=== PATIENT | female | born 1950 | race Caucasian/White ===

== ENCOUNTER → 2016-08-25 | Outpatient (CLI) | payer OTHER ==
[~2016-08-25] MED LIST: ACET-24 PO; ACT/45 PO; ACT15 PO; AMOX500C3 PO; ASPEC81 PO; ASPI81TA28 PO; ATOR-24 PO; CLB200 PO; DICL-201 PO; DOCU100C PO; FERR1TAB13 PO; FLUT0.15 NAE; FURO-85 PO; GLC500 PO; GLCSC500400 PO; LEVO100T48 PO; LEVO100T7 PO; LISI10TA PO; LPR25 PO; LSX20 PO; MAGN400T6 PO; METF-384 PO; MULT-506 PO; ONDA8TAB6 PO; PRLSR20 PO; RXC5 PO; SERT-234 PO; SITA100T3 PO; SULF800T23 PO
--- NOTE | 2016-08-25 15:21 | MAMMOGRAPHY REPORT ---
BILATERAL DIGITAL SCREENING MAMMOGRAM WITH CAD: 08/25/2016 TECHNIQUE: Current study was also evaluated with a Computer Aided Detection (CAD) system. Bilatera l CC and MLO views were obtained. COMPARISON: Comparison is made to exams dated: 07/20/2015 mammogram, 01/15/2014 mammogram - [facility], 06/15/2009 mammogram, 07/29/2015 mammogram - [facility], and 1 08/30/2009 mammogram. BREAST COMPOSITION: There are scattered areas of fibroglandular density in both breasts. FINDINGS: No suspicious masses, calcifications, or areas of architectural distortion are noted in e ither breast. Post surgical changes are noted in the right central/6:00 breast from prior benign ex cisional biopsy. IMPRESSION: ACR BI-RADS CATEGORY 2: BENIGN There is no mammographic evidence of malignancy. A 1 year screening mammogram is recommended. The p atient will receive written notification of the results. Approximately 10% of breast cancers are not detected with mammography. A negative mammographic repor t should not delay biopsy if a clinically suggestive mass is present. Lucy Ferrera M.D. ah/:08/25/2016 13:27:00 Head Of History: Hien GUDINO)(Batsheva), [facility] letter sent: Normal 1/2 BI-RADS Code: ACR BI-RADS Category 2: Benign
== END | disposition home or self-care (01) ==
LOC: C.MAMM 10:38
PROVIDERS: ATTEND Internal Medicine
DX: Z12.31 Encounter for screening mammogram for malignant neoplasm of breast (principal)

== ENCOUNTER → 2016-12-14 | Outpatient (CLI) | payer OTHER ==
[~2016-12-14] MED LIST changes: +VANC1INJ94 IV
[2016-12-14 10:28] LABS: BASO % 0.5 %; BASO ABS # 0.04 K/uL (0-0.2); COMPLETE YES; EOS % 3.3 %; HEMATOCRIT 37.6 % (37-47); IG% 0.2 %; LYMPH % 17.9 %; LYMPH ABS # 1.51 K/uL (1.2-3.4); MEAN CELL VOLUME 88.9 fL (80-100); MEAN CORPUSCULAR HEMOGLOBIN 28.1 pg (25-34); MEAN CORPUSCULAR HGB CONC 31.6 g/dl (32-36); MONO % 6.4 %; NEUT % 71.7 %; PLATELET COUNT 302 K/uL (130-400); RED BLOOD COUNT 4.23 M/uL (4.2-5.4); WHITE BLOOD COUNT 8.45 K/uL (4.8-10.8)
[2016-12-14 11:01] LABS: ESTIMATED AVERAGE GLUCOSE 128 mg/dl; HA1C FLAG Normal (Normal)
[2016-12-14 11:15] LABS: RATIO 10.3 mcg/mg (0-30.0)
[2016-12-14 11:17] LABS: ALT/SGPT 33 U/L (12-78); AST/SGOT 16 U/L (15-37); BLOOD UREA NITROGEN 24 mg/dl (7-18); BUN/CREATININE RATIO 18.2 (10-20); CALCIUM 8.9 mg/dl (8.5-10.1); CARBON DIOXIDE 27 mmol/L (21-32); CHLORIDE 105 mmol/L (98-107); CHOLESTEROL 143 mg/dl (0-200); GLUCOSE 103 mg/dl (70-99); MAGNESIUM 1.5 mg/dl (1.8-2.4); POTASSIUM 4.3 mmol/L (3.5-5.1); SODIUM 141 mmol/L (136-145); TRIGLYCERIDES 159 mg/dl (0-150); VERY LOW DENSITY LIPOPROT CALC 32 mg/dl
[2016-12-14 11:27] LABS: ALB/GLOB RATIO 0.9 (0.9-2); ALKALINE PHOSPHATASE 109 U/L (45-117); CHOLESTEROL/HDL RATIO 3.9; HDL CHOLESTEROL 37 mg/dl; LDL CHOLESTEROL CALCULATED 74 mg/dl; THYROID STIMULATING HORMONE 0.569 uIu/ml (0.300-4.500)
== END | disposition home or self-care (01) ==
LOC: C.LAB1850 09:06
PROVIDERS: ATTEND Internal Medicine
DX: E11.9 Type 2 diabetes mellitus without complications (principal); E03.9 Hypothyroidism, unspecified; E83.42 Hypomagnesemia; Z86.2 Personal history of diseases of the blood and blood-forming organs and certain disorders involving the immune mechanism

== ENCOUNTER 2017-03-02 06:06 | Inpatient (IN) | payer OTHER ==
[2017-02-05 11:22] VITALS: BMI 41.0
--- NOTE | 2017-02-05 11:57 | PAT Medication Instructions ---
Service Date Feb 05, 2017. Current Home Medication List Amoxicillin (Amoxil), 2,000 MG PO UD PRN for N Aspirin (Aspirin Ec), 81 MG PO QAM Atorvastatin (Lipitor), 40 MG PO HS Diclofenac (Voltaren), 75 MG PO BID Fluticasone Propionate (Nasal) (Flonase Allergy Relief), 2 SPRAYS DMITRIY PRN Furosemide (Lasix *), 20 MG PO DAILY PRN Levothyroxine (Levoxyl), 0.1 MG PO QAM Lisinopril (Prinivil), 10 MG PO QAM Magnesium Oxide (Mag-Ox), 400 MG PO BID Metformin HCL (Glucophage *), 1,000 MG PO BID Metoprolol Tartrate (Lopressor), 0.5 TAB PO BID Omeprazole (Prilosec), 20 MG PO HS Pioglitazone (Actos *), 45 MG PO QAM Sertraline (Zoloft), 100 MG PO QAM Sitagliptin Phosphate (Januvia), 100 MG PO QPM Medication Instructions For Your Scheduled Surgery - Hold the following medications 48 hours prior to surgery: Metformin HCL (Glucophage *), 1,000 MG PO BID - Hold the following medications the morning of surgery: Furosemide (Lasix *), 20 MG PO DAILY PRN Pioglitazone (Actos *), 45 MG PO QAM Lisinopril (Prinivil), 10 MG PO QAM Magnesium Oxide (Mag-Ox), 400 MG PO BID Diclofenac (Voltaren), 75 MG PO BID (otherwise okay to continue per surgeon) - Take the following medications the morning of surgery with a sip of water OTHERWISE NOTHING TO EAT OR DRINK AFTER MIDNIGHT : Aspirin (Aspirin Ec), 81 MG PO QAM Levothyroxine (Levoxyl), 0.1 MG PO QAM Sertraline (Zoloft), 100 MG PO QAM Metoprolol Tartrate (Lopressor), 0.5 TAB PO BID Fluticasone Propionate (Nasal) (Flonase Allergy Relief), 2 SPRAYS DMITRIY PRN - Take the following medications as scheduled the night before surgery: Omeprazole (Prilosec), 20 MG PO HS Atorvastatin (Lipitor), 40 MG PO HS Sitagliptin Phosphate (Januvia), 100 MG PO QPM Metoprolol Tartrate (Lopressor), 0.5 TAB PO BID Magnesium Oxide (Mag-Ox), 400 MG PO BID Fluticasone Propionate (Nasal) (Flonase Allergy Relief), 2 SPRAYS DMITRIY PRN If you have any questions please call us at [phone] or [phone] or [phone]
[2017-02-05 12:21] LABS: BASO % 0.2 %; BASO ABS # 0.02 K/uL (0-0.2); COMPLETE YES; EOS % 2.1 %; HEMATOCRIT 37.7 % (37-47); IG% 0.4 %; LYMPH % 19.9 %; LYMPH ABS # 1.96 K/uL (1.2-3.4); MEAN CELL VOLUME 87.1 fL (80-100); MEAN CORPUSCULAR HEMOGLOBIN 27.7 pg (25-34); MEAN CORPUSCULAR HGB CONC 31.8 g/dl (32-36); MEAN PLATELET VOLUME 9.4 fL (7.4-10.4); MONO % 5.3 %; NEUT % 72.1 %; PLATELET COUNT 318 K/uL (130-400); RED BLOOD COUNT 4.33 M/uL (4.2-5.4); WHITE BLOOD COUNT 9.83 K/uL (4.8-10.8)
[2017-02-05 12:26] LABS: ESTIMATED AVERAGE GLUCOSE 131 mg/dl; HA1C FLAG Normal (Normal)
[2017-02-05 12:31] LABS: PROTHROMBIN TIME (PATIENT) 11.2 SECONDS (9.0-12.0)
[2017-02-05 12:34] LABS: URINE APPEARANCE CLEAR (CLEAR); URINE BILIRUBIN NEG (NEG); URINE COLOR YELLOW; URINE NITRITE NEG (NEG); URINE SPECIFIC GRAVITY 1.017 (1.000-1.030); UROBILINOGEN NEG (NEG)
[2017-02-05 12:35] LABS: MANUAL MICROSCOPIC REQUIRED? NO; REVIEW REQ? NO
[2017-02-05 13:36] LABS: BUN/CREATININE RATIO 23.1 (10-20); CALCIUM 9.2 mg/dl (8.5-10.1); CREATININE 1.2 mg/dl (0.60-1.20); POTASSIUM 4.6 mmol/L (3.5-5.1)
--- NOTE | 2017-02-21 14:01 | HISTORY & PHYSICAL EXAMINATION ---
DATE OF ADMISSION: 03/02/2017 SUBJECTIVE CHIEF COMPLAINT: Right knee pain. HISTORY OF PRESENT ILLNESS: The patient is a 67-year-old female who complains of right knee pain. She states that the symptoms have been chronic and nontraumatic in nature. She states that the symptoms occur constantly and are described as aching, sharp and throbbing. She has failed conservative therapies including nonsteroidal anti-inflammatories, cortisone injections, and physical therapy. This affects her activities of daily living. She would like to proceed with a right total knee arthroplasty. PAST MEDICAL HISTORY: Significant for hypertension, hypercholesterolemia, anxiety, shortness of breath while walking up hills, kzt-[id number]-[id number] diabetes, osteoarthritis, hypothyroidism and GERD. PAST SURGICAL HISTORY: Partial thyroidectomy, carpal tunnel of the right hand, carpal tunnel of the left hand, total hysterectomy, left TKA, lumpectomy of the left breast, lumpectomy of the right breast, lower lumbar fusion and nerve decompression, multilevel lumbar fusion. SOCIAL HISTORY: She denies alcohol use. She denies smoking or tobacco use. She denies IV or illegal drug use. She lives in a 1-story house and she is currently retired. FAMILY HISTORY: Mom and dad have a history of heart disease and heart attack. ALLERGIES: EFFEXOR, MYRBETRIQ. MEDICATIONS: Aspirin 81 mg once daily, atorvastatin 40 mg once daily, diclofenac 75 mg 1 tablet twice a day, fluticasone 50 mcg 2 sprays each nostril for congestion, furosemide 20 mg 1 tablet as needed for fluid, Januvia 100 mg 1 tablet daily, lisinopril 10 mg 1 tablet daily, Mag-Ox 400 mg 1 tablet twice a day, metoprolol 25 mg 1/2 tablet twice a day, metformin 1000 mg 1 tablet twice a day, omeprazole 20 mg 1 capsule at bedtime, pioglitazone 45 mg 1 tablet daily, sertraline 100 mg 1 tablet daily, Synthroid 100 mcg 1 tablet daily. REVIEW OF SYSTEMS: She denies headaches, fevers, chills, double vision, blurry vision, sore throat, cough, chest pain, nausea, vomiting, diarrhea, constipation, numbness, tingling, tired, urinary difficulties, thoughts to harm herself or harm others or depression. She is positive for joint pain, joint stiffness of her right knee. OBJECTIVE: GENERAL APPEARANCE: The patient is a 67-year-old female who is sitting in no acute distress. She is well dressed, well nourished. She is awake, alert and oriented x3. VITAL SIGNS: She is 5 foot 3 inches tall, 230 pounds, blood pressure is 122/70. HEAD, EYES, EARS, NOSE, AND THROAT: Normocephalic, atraumatic. Extraocular movements are intact. PERRLA. Mucosa was moist. No septal deviation. NECK: Supple with no lymphadenopathy, no JVD, no thyromegaly. HEART: Regular rate and rhythm. No murmurs or gallops. LUNGS: Clear to auscultation. No wheezing or rhonchi. ABDOMEN: Soft, nontender, nondistended. Normal bowel sounds, no hepatosplenomegaly. EXTREMITIES: Paying particular attention to the right lower extremity, she is able to extend her knee to 0 degrees and flex her knee to 90 degrees. She has medial joint line tenderness. Ligaments are intact. NEUROLOGIC EXAMINATION: Cranial nerves II-XII are intact. Pulses were compared bilaterally and were equal. IMAGING: X-rays of the right knee demonstrate bone on bone medial joint line narrowing, osteophyte formation and subchondral sclerosis. IMPRESSION: Primary osteoarthritis of the right knee. PLAN: The patient is scheduled for a right total knee arthroplasty. She has failed conservative therapies including cortisone injections, nonsteroidal anti-inflammatories and physical therapy with no relief. This affects her activities of daily living. She would like to proceed with a right total knee arthroplasty. Risks and benefits to surgery were discussed that included but not limited to infection, DVT, pain, failure to relieve all symptoms, blood vessel damage, nerve damage, need for revision surgeries, PE, and anesthesia risks were all discussed with the patient and she wishes to proceed. All questions were answered to her satisfaction. DVT prophylaxis will be aspirin 81 mg twice a day. On discharge she would like to go home with home health. MARCELA
[2017-03-02] VITALS (11 sets, daily range): BP systolic 106–137; BP diastolic 60–88; PULSE 60–79; TEMP 36.7–37.6; O2SAT 94–98; Ht 160 cm; Wt 105.2 kg
[~2017-03-02] VITALS: Ht 160 cm; Wt 105.2 kg
[~2017-03-02 06:06] MED LIST changes: -ACET-24 PO; +ACETAMINOPHEN 500 MG TAB PO SCH; -ACT/45 PO; -ASPEC81 PO; +CEFAZOLIN 2000 MG/60 ML D5W 60 ML IV SCH; -CLB200 PO; +CeleBREX 200 MG CAP PO SCH; +DEXAMETHASONE 4 MG TAB PO SCH; -DOCU100C PO; +FAMOTIDINE 20 MG TAB PO SCH; -FERR1TAB13 PO; -FURO-85 PO; +GABAPENTIN 300 MG CAP PO SCH; -GLCSC500400 PO; +LACTATED RINGER'S 1000ML 1,000 ML IV SCH; +LACTATED RINGER'S 1000ML 500 ML IV ONE; +LACTATED RINGER'S 1000ML IV SCH; -LEVO100T7 PO; -METF-384 PO; +METOCLOPRAMIDE HCL 10 MG TAB PO SCH; -MULT-506 PO; -ONDA8TAB6 PO; +ROPIVACAINE 5MG/ML 30 ML 150 MG, BUPIVACAINE/EPINEPHR 0.5% MPF 30 ML, KETOROLAC TROMETH... INFIL SCH; -RXC5 PO; -SULF800T23 PO; -VANC1INJ94 IV
[2017-03-02] MEDS ORDERED: BUPIVACAINE 0.5 % 5 MG/1 ML PF 10ML VIAL ONE (06:28)
[2017-03-02] MEDS ORDERED: BUPIVACAINE 0.25% 30 ML VIAL ONE (06:28)
[2017-03-02] MEDS: TRANEXAMIC ACID INJ 1,000 MG in SODIUM CHLORIDE 0.9% 100ML 100 ML IV SCH ×2 (06:30→07:30)
[2017-03-02] MEDS ORDERED: ATROPINE SULFATE 0.1 MG/ML 5ML SYR IV PRN (06:45)
[2017-03-02] MEDS ORDERED: FENTANYL CITRATE INJ 50 MCG/1 ML 2 ML VIAL IV PRN (06:45)
[2017-03-02] MEDS ORDERED: HYDROmorphone INJ 1 MG/ML SYR IV PRN (06:45)
[2017-03-02] MEDS ORDERED: ONDANSETRON INJ 2 MG/ML 2 ML VIAL IV PRN ×2 (06:45→10:45)
[2017-03-02] MEDS ORDERED: EpHEDrine SULFATE INJ 50 MG/ML AMP IV PRN (06:45)
[2017-03-02] MEDS ORDERED: PROMETHAZINE HCL INJ 12.5 MG in SODIUM CHLORIDE 0.9% 50ML 50 ML IV PRN (06:45)
[2017-03-02] MEDS ORDERED: FENTANYL CITRATE INJ 50 MCG/1 ML 2 ML VIAL ONE (06:54)
[2017-03-02] MEDS ORDERED: MIDAZOLAM HCL 1 MG/ML 2ML VIAL ONE (06:54)
--- NOTE | 2017-03-02 06:57 | History & Physical Bridge Note ---
H&P Re-Evaluation Bridge Note: I have examined the patient, reviewed the History & Physical and in the interval since the performance of the History & Physical I have noted the following changes of clinical significance: No changes noted
[2017-03-02] MEDS ORDERED: POVIDONE-IODINE OP SOLN 30 ML BTL ONE (07:44)
[2017-03-02] MEDS ORDERED: ORTHO JOINT ANESTHETIC ONE (07:44)
[2017-03-02] MEDS ORDERED: BACITRACIN 50000 UNIT VIAL ONE (07:44)
[2017-03-02] MEDS ORDERED: PROPOFOL IV EMULSION 10 MG/ML 20 ML VIAL IV ONE (08:58)
[2017-03-02] MEDS ORDERED: FLUTICASONE PROPIONATE NA SPR 16 GM BTL NAE PRN (10:45)
[2017-03-02] MEDS ORDERED: ZOLPIDEM TARTRATE 5 MG TAB PO PRN (10:45)
[2017-03-02] MEDS ORDERED: ALUMINUM/MAGNESIUM/SIMETH (MAALOX MAX) 30 ML UDC PO PRN (10:45)
[2017-03-02] MEDS ORDERED: BISACODYL 10 MG SUPP PR PRN (10:45)
[2017-03-02] MEDS ORDERED: SOD PHOSPHATE/SOD BIPHOSPHATE ENEMA 132 ML BTL PR PRN (10:45)
--- NOTE | 2017-03-02 11:12 | Anesthesiology Progress Note ---
Anesthesia Post Op Note Date & Time Mar 02, 2017 at 11:12 Vital Signs Pain Intensity: 0 Vital Signs Past 12 Hours Date Time Temp Pulse Resp B/P (MAP) Pulse Ox O2 Delivery O2 Flow Rate FiO2 03/02/17 11:00 65 14 102/59 97 Nasal Cannula 2 03/02/17 10:50 66 14 88/55 99 Oxymask 10 03/02/17 10:40 67 14 92/52 99 Oxymask 10 03/02/17 10:30 71 16 105/53 99 Oxymask 10 03/02/17 10:23 36.6 72 16 91/49 99 Oxymask 10 03/02/17 06:35 37.1 74 18 137/88 98 Room Air Notes Mental Status: alert / awake / arousable, participated in evaluation Pt Amnestic to Procedure: Yes Nausea / Vomiting: adequately controlled Pain: adequately controlled Airway Patency, RR, SpO2: stable & adequate BP & HR: stable & adequate Hydration State: stable & adequate Neuraxial Anesthesia: was administered, sensory block is resolving Anesthetic Complications: no major complications apparent
--- NOTE | 2017-03-02 11:18 | DIAGNOSTIC IMAGING REPORT ---
RIGHT KNEE 1 OR 2 VIEWS ROUTINE HISTORY: 67 years-old Female status post right total knee arthroplasty COMPARISON: None available TECHNIQUE: Frontal and lateral views of the right knee FINDINGS: There is been total right knee joint arthroplasty with patellar resurfacing. No evidence of periprosthetic fracture or malalignment. Expected postsurgical soft tissue swelling and air is seen about the deep tissues of the knee. Surgical drain is in place. No retained radiopaque foreign body. IMPRESSION: Status post right knee total joint arthroplasty and patellar resurfacing without complication. The above report was generated using voice recognition software. It may contain grammatical, syntax or spelling errors. Electronically signed by: Chetan Mayberry M.D. 03/02/2017 11:17 AM Dictated Date/Time: 03/02/2017 11:16 AM
[2017-03-02] MEDS ORDERED: PHARMACY GLYCEMIC MGMT CONSULT PRN (11:21)
[2017-03-02] MEDS ORDERED: NovoLIN-N (NPH) PER UNIT CHARGE SQ ONE (11:30)
--- NOTE | 2017-03-02 12:14 | Pharmacy Progress Note ---
Glycemic Control Intl Consult Date of Service Mar 02, 2017. Scope Glycemic Pharmacist consulted by April Roblero on 03/02/2017 for glycemic control and to write orders per [facility] inpatient glycemic control protocol Objective Weight (Kilograms): 105.20 Accuchecks BSG (last 24hrs): Test 03/02/17 06:31 03/02/17 10:25 Bedside Glucose 132 mg/dl (70-90) 147 mg/dl (70-90) Recent Pertinent Medications Outpatient Anti-diabetic Regimen: * Metformin 1 gm PO BID, Actos 45 mg PO QD, Januvia 100 mg PO QD * A1c = 6.2 % 02/05/17 Risk Factors for Insulin Resistance: * Steroids: dexamethasone 8 mg PO preop and one time post-op day 1; dexamethasone 4 mg topically * IVF: NS @ 100 mLs/hr * Recent Surgery: POD 0 for R TKA * Diet: type 2 diabetic diet Assessment & Plan ASSESSMENT: * ADA & AACE recommend a goal blood sugar range 140-180 mg/dl for the majority of critically ill & non-critically ill patients. However, more stringent targets may be selected in individual cases. Will utilize more stringent goal of 110-140 mg/dl based on patient age & comorbidities. Additionally, tighter glycemic control is warranted to facilitate wound healing. * Ms Tao is a 67 y/o F who presented for a R TKA. She has a well-controlled HbA1C but is also on three oral medications. * Will start NPH (0.4 units/kg/day for prednisone equivalent dose >/= 40 mg/day ) x 1 dose today for the one time dose of dexamethasone. Repeat tomorrow for additional dose of dexamethasone. Start correctional insulin at weight based stress of 2. Dose of NPH should alleviate blood sugar spikes from dexamethasone so less Novolog will be necessary. * Pt is maintained on oral antidiabetic agents as an outpatient * Oral agents are not recommended for inpatient use d/t drug interactions, changing PO intake, and difficulty titrating for acute hyper/hypoglycemia. ADA recommends re-initiating outpatient oral agents 1-2 days prior to discharge if/ when appropriate if they were held on admission. * Will hold oral agents for admission and utilize SQ basal bolus insulin regimen which is the recommended regimen for inpatient glycemic control. * Restart POD 2 PLAN FOR INPATIENT GLYCEMIC CONTROL: * Holding outpatient oral diabetes medications -restart metformin and sitagliptin POD 2 if renal function stable and oral intake adequate * Basal insulin with NPH 40 units x 1 today with repeat dose tomorrow morning * Correctional Insulin with NOVOLOG per scale ACHS * Goal Range: Low 110 mg/dL - High 140 mg/dL * Correction Factor: 20 mg/dL/unit * Nutritional / Prandial insulin per carb ratio of 1 unit per 7 grams CHO consumed RECOMMENDATION FOR DISCHARGE * Patient's HbA1C well controlled; may continue current outpatient regimen as long as having no side effects. * Please note that the plan above was derived based on current level of insulin resistance and hospital stress. These recommendations are appropriate for inpatient admission only. Plan of care upon discharge will need to be reassessed to avoid potential outpatient hypo/hyperglycemia. Thank you.
[2017-03-02] MEDS: SODIUM CHLORIDE 0.9% 1000ML 1,000 ML IV SCH ×2 (12:36→20:29)
[2017-03-02] MEDS: INSULIN ASPART 100 UNITS/ML 3 ML PEN SC SCH ×3 (13:31→20:31)
[2017-03-02] MEDS: ACETAMINOPHEN 500 MG TAB PO SCH ×2 (13:34→21:46)
[2017-03-02] MEDS: CEFAZOLIN IV 2,000 MG in DEXTROSE 5% 50ML 50 ML IV SCH (15:33)
--- NOTE | 2017-03-02 17:30 | [facility] Operative Report ---
Operative Report Operative Date Mar 02, 2017. Pre-Operative Diagnosis Primary Osteoarthritis of Right Knee Post-Operative Diagnosis same Procedure(s) Performed Right Total Knee Arthroplasty Surgeon Dr. Garvey Cafeteria Aide Surgeon(s) Josefina Roblero Pa-C Estimated Blood Loss 50 ML Findings above Specimens a. right knee bone and tissue Drains 0 Anesthesia spinal Complication(s) None Disposition Recovery Room / PACU Indications Is 67-year-old female with long-standing degenerative joint disease right knee. She's fill conservative measures including injections and anti-inflammatory rehabilitation. She wished to proceed with right total knee arthroplasty. Description of Procedure Risks benefits and alternatives of surgery including but not limited to infection DVT pain stiffness need for surgery damage to blood vessels damage to nerves or risks of anesthesia were discussed with the patient and she wished to proceed. Patient was identified in the laterality was confirmed and marked. She received a preoperative antibiotic is also a spinal anesthetic and a abductor canal block. A well-padded tourniquet was applied and then the limb was prepped and draped in standard manner with ChloraPrep. The limb was exsanguinated and the tourniquet was inflated. I made a standard anterior incision. I sharply incised the skin then utilized Bovie electrocautery as well as the aqua mantis to achieve hemostasis. I made a medial parapatellar arthrotomy immobilized the patella laterally. I then excised the anterior horns of the medial and lateral meniscus as well as the infrapatellar fat pad. I elevated a portion of the MCL off of the tibia. I then pinned into place a patient-matched distal femoral cutting guide and made my distal femoral resection. I then pinned into place a size 4 5 in 1 cutting guide. I made my anterior, posterior and chamfer cuts. I then excised the cruciates and the remaining portions of the menisci. I then pinned into place a patient- matched tibial cutting guide and made my tibial resection. I then pinned into place a size 3 tibia utilizing alignment rods to confirm rotation. I then cut for the post. Utilizing a lamina hoop flaring machine operator helper and then removed posterior osteophytes off the femur. I then placed a trial femur into position and cut for the trochlear component. I then sequentially trialed to size 10 polyethylene. There was good soft tissue balancing and range of motion with this polyethylene. I then prepared the patella with a freehand cut utilizing sagittal saw. I sized and drilled for a size 32 patella. There was good tracking to the patella no lateral release was needed. All the trial components were removed. The deep tissues were anesthetized with and ortho mix solution. Then with Simplex HV with gentamicin cement I cemented my definitive components. Definitive components, [employer] 2: Femur 4 Tibia 3 Poly 10 Patella 32 oval Betadine soak was performed. A deep drain was placed. The arthrotomy was closed with interrupted #1 Vicryl suture subcutaneous tissue was closed with interrupted 2-0 Vicryl suture and skin with sara. Sterile dressings applied and the tourniquet was released. All needle and sponge counts were correct at the end of the procedure patient was transferred to the PACU in stable condition without apparent complication. The PA-C was necessary for assistance with procedure for assistance in positioning, prepping, draping, retraction and closure. I attest to the content of the Intraoperative Record and any orders documented therein. Any exceptions are noted below.
[2017-03-02] MEDS: KETOROLAC TROMETHAMINE 15 MG/ML VIAL IV. SCH (17:47)
[2017-03-02] MEDS: ATORVASTATIN 40 MG TAB PO SCH (20:30)
[2017-03-02] MEDS: ASPIRIN 81 MG ECTAB PO SCH (20:30)
[2017-03-02] MEDS: METOPROLOL TARTRATE 25 MG TAB PO SCH (20:30)
[2017-03-02] MEDS: MAGNESIUM OXIDE 400 MG TAB PO SCH (20:30)
[2017-03-02] MEDS: SENNA 8.6 MG TAB PO SCH (20:30)
[2017-03-02] MEDS ORDERED: SITAGLIPTIN 100 MG TAB PO SCH (21:00)
[2017-03-03] VITALS (8 sets, daily range): BP systolic 105–128; BP diastolic 61–77; PULSE 57–76; TEMP 36.4–36.6; O2SAT 96–98
[2017-03-03] MEDS: KETOROLAC TROMETHAMINE 15 MG/ML VIAL IV. SCH ×3 (00:07→11:11)
[2017-03-03] MEDS: CEFAZOLIN IV 2,000 MG in DEXTROSE 5% 50ML 50 ML IV SCH (00:07)
[2017-03-03] MEDS: SODIUM CHLORIDE 0.9% 1000ML 1,000 ML IV SCH (05:45)
[2017-03-03] MEDS: LEVOTHYROXINE 100 MCG TAB PO SCH (05:45)
[2017-03-03] MEDS: ACETAMINOPHEN 500 MG TAB PO SCH ×3 (05:45→21:15)
[2017-03-03 06:05] LABS: HEMATOCRIT 30.8 % (37-47); MEAN CELL VOLUME 88.3 fL (80-100); MEAN CORPUSCULAR HEMOGLOBIN 27.8 pg (25-34); MEAN CORPUSCULAR HGB CONC 31.5 g/dl (32-36); MEAN PLATELET VOLUME 9.8 fL (7.4-10.4); PLATELET COUNT 262 K/uL (130-400); RED BLOOD COUNT 3.49 M/uL (4.2-5.4); WHITE BLOOD COUNT 13.73 K/uL (4.8-10.8)
[2017-03-03 06:44] LABS: BUN/CREATININE RATIO 22.3 (10-20); CALCIUM 8.1 mg/dl (8.5-10.1); CREATININE 0.99 mg/dl (0.60-1.20)
--- NOTE | 2017-03-03 06:48 | Orthopedic Progress Note ---
Orthopedic Progress Note Date of Service Mar 03, 2017. Subjective Post OP Day: 1 (Right TKA) Reports: feeling well, pain controlled w PO medications, Denies: complaints, chest pain, SOB, nausea / vomiting, light headedness, calf pain Objective calves soft nontender, N/V intact, capillary refill less than 2 sec., dressing C /D/I, A&O x3, toes mobile Date Time Temp Pulse Resp B/P (MAP) Pulse Ox O2 Delivery O2 Flow Rate FiO2 03/03/17 02:45 36.5 60 18 105/63 (77) 98 Room Air 03/03/17 00:05 Room Air 03/02/17 23:08 36.8 60 16 106/60 (75) 94 Room Air 03/02/17 20:28 68 113/68 (83) 96 Room Air 03/02/17 19:48 37.6 76 17 111/69 (83) 94 Room Air 03/02/17 15:45 96 Room Air 03/02/17 15:30 36.7 73 16 113/71 (85) 96 Room Air 03/02/17 14:30 37.0 73 18 123/70 (87) 97 Nasal Cannula 2.0 03/02/17 13:30 76 18 119/69 (86) 97 Nasal Cannula 2.0 03/02/17 12:28 79 18 107/63 (78) 97 Nasal Cannula 2.0 03/02/17 11:57 65 18 119/73 (88) 97 Nasal Cannula 2.0 03/02/17 11:30 Nasal Cannula 2.0 03/02/17 11:30 36.9 74 18 113/65 (81) 94 Nasal Cannula 2.0 03/02/17 11:30 Nasal Cannula 2.0 03/02/17 11:10 36.7 68 15 120/64 97 Nasal Cannula 2 03/02/17 11:00 65 14 102/59 97 Nasal Cannula 2 03/02/17 10:50 66 14 88/55 99 Oxymask 10 03/02/17 10:40 67 14 92/52 99 Oxymask 10 03/02/17 10:30 71 16 105/53 99 Oxymask 10 03/02/17 10:23 36.6 72 16 91/49 99 Oxymask 10 Laboratory Results 24 Hours: Test 8/12/17 05:31 Hematocrit 30.8 % Hemoglobin 9.7 g/dL Assessment & Plan Assessment: POD #1 s/p right tka -pt/ot -dvt proph with cassy/scd/asa -plan for d/c home with HHPT -labs stable Past Med History: Significant for hypertension, hypercholesterolemia, anxiety, shortness of breath while walking up hills, wgs-dzcpanl-neaqaotrm diabetes, osteoarthritis, hypothyroidism and GERD. Discharge Planning Discharge Planning: home with home health DVT Prophylaxis: TEDs, SCDs, ASA Therapy: Physical Therapy
[2017-03-03] MEDS ORDERED: DEXAMETHASONE 4 MG TAB PO SCH (07:30)
[2017-03-03] MEDS ORDERED: NovoLIN-N (NPH) PER UNIT CHARGE SQ SCH (07:30)
[2017-03-03] MEDS: ASPIRIN 81 MG ECTAB PO SCH ×2 (08:42→21:13)
[2017-03-03] MEDS: METOPROLOL TARTRATE 25 MG TAB PO SCH ×2 (08:43→21:00)
[2017-03-03] MEDS: MULTIVITAMIN TAB PO SCH (08:43)
[2017-03-03] MEDS: PANTOprazole SOD 40 MG TAB PO SCH (08:43)
[2017-03-03] MEDS: MAGNESIUM OXIDE 400 MG TAB PO SCH ×2 (08:43→21:13)
[2017-03-03] MEDS: FUROSEMIDE 20 MG TAB PO SCH (08:43)
[2017-03-03] MEDS: SERTRALINE HCL 100 MG TAB PO SCH (08:44)
[2017-03-03] MEDS: LISINOPRIL 10 MG TAB PO SCH (08:44)
[2017-03-03] MEDS: INSULIN ASPART 100 UNITS/ML 3 ML PEN SC SCH ×4 (08:50→21:16)
[2017-03-03] MEDS ORDERED: PIOGLITAZONE TAB 15 MG TAB PO SCH (09:00)
--- NOTE | 2017-03-03 09:24 | Discharge Instructions ---
Discharge Instructions Date of Service Mar 03, 2017. Admission Reason for Admission: Right Knee Osteoarthritis Discharge Discharge Diagnosis / Problem: Right Total Knee Replacement Discharge Goals Goal(s): Decrease discomfort, Improve function, Increase independence Activity Recommendations Activity Limitations: as noted below Weightbearing Status: Right weightbearing (as tolerated) . Instructions / Follow-Up Instructions / Follow-Up ACTIVITY RECOMMENDATIONS: SELF CARE INSTRUCTIONS AFTER TOTAL KNEE REPLACEMENT A. You may need to continue a physical therapy program after discharge from the hospital. There are several options available to you. Your doctor will assist you in selecting the best one for you. 1. An out-patient facility 2 to 3 times a week for therapy or home therapy. 2. Continue working on all exercises taught to you in the hospital. Your goals should be to increase bending of your knee to 90 degrees and beyond and to fully straighten your knee. B. You may progress at your own pace from walking with a walker or crutches to a cane; then to no assistive devices. C. Make walking a part of your daily routine. Be up as much as comfortable with rest periods throughout the day. Rest with leg elevation is very important. Use the ice wrap frequently for the first 3-4 weeks. D. There are no restrictions on activities. You may ride in a car, shop, participate in cycle specialist and all social activities. E. Wear the long elastic stockings (SITA hose) 20 hours a day for 2 weeks after surgery. They can be removed several times a day for laundering and for a bath. F. You may shower, no tub baths until cleared by your doctor. SPECIAL CARE INSTRUCTIONS: VERY IMPORTANT TO READ AND REVIEW A. There are a few signs you need to watch for after you are home. Call [facility] if you notice any of the followin. Increased severe knee pain. Some pain is expected especially when you exercise. 2. Increased swelling in your leg or knee; pain or swelling of the calf muscle in either lower leg. 3. Any fluid drainage from the incision. 4. Shortness of breath or chest pain. B. Please call [facility] at if you have any concerns or questions about your operation or recovery. The doctor or his nurse will return your call promptly. C. You must take antibiotics before dental work, bladder, bowel or other surgery. Your doctor will provide you with a permanent care to carry describing this precaution. IMPORTANT: * REMEMBER TO TAKE ASPIRIN, 81 MG, TWICE DAILY FOR 4 WEEKS UNLESS OTHERWISE DIRECTED. THIS IS YOUR BLOOD THINNER. * HIGH RISK PATIENTS MAY BE PRESCRIBED A STRONGER BLOOD THINNER. THIS WILL BE PROVIDED AT DISCHARGE. * CALL IF INCREASED PAIN, REDNESS, DRAINAGE OR FEVER GREATER THAT 101. * WEAR SITA HOSE 20 HOURS PER DAY FOR 2 WEEKS. * YOU MAY HAVE A LARGE BAND-AID LIKE DRESSING (SILVERON). THIS WILL REMAIN ON YOUR INCISION FOR 7 DAYS, THEN CAN BE REMOVED. IF INCISION IS LEAKING THROUGH DRESSING, CALL THE OFFICE . FOLLOW UP VISIT: If appointment is not already scheduled: Please call [facility] to make a follow-up appointment for 2 weeks after your surgery at . Current Hospital Diet Patient's current hospital diet: Diabetes Type 2 Diet Discharge Diet Recommended Diet: Diabetes Type 2 Diet Procedures Procedures Performed: Right Total Knee Arthroplasty Pending Studies Studies pending at discharge: no Laboratory Results Hemoglobin A1c Test 02/05/17 12:03 Range/Units Estimated Average Glucose 131 mg/dl Hemoglobin A1c 6.2 H 4.5-5.6 % Lipid Panel Test 12/14/16 09:12 Range/Units Triglycerides Level 159 H 0-150 mg/dl Cholesterol Level 143 0-200 mg/dl HDL Cholesterol 37 mg/dl Cholesterol/HDL Ratio 3.9 LDL Cholesterol, Calculated 74 mg/dl Medical Emergencies . Who to Call and When: Medical Emergencies: If at any time you feel your situation is an emergency, please call 911 immediately. . Non-Emergent Contact Non-Emergency issues call your: Primary Care Provider . "Provider Documentation" section prepared by Jose M Guerra. . VTE Core Measure Inpt VTE Proph given/why not?: Other Anticoagulation (ASA 81mg po bid x 1 month ), [place], SCD's [place] Drug Monitoring Program Search Results: patient reviewed within database, no issues identified
--- NOTE | 2017-03-03 09:29 | Pharmacy Progress Note ---
Glycemic Control Progress Note Date of Service Mar 03, 2017. Scope Glycemic Pharmacist consulted for glycemic control to write orders per [facility] inpatient glycemic control protocol. Objective Accuchecks BSG (last 24hrs): Test 03/02/17 10:25 03/02/17 12:10 03/02/17 17:15 03/02/17 20:21 Bedside Glucose 147 mg/dl (70-90) 131 mg/dl (70-90) 127 mg/dl (70-90) 136 mg/dl (70-90) Test 03/03/17 05:31 03/03/17 08:03 Random Glucose 122 mg/dl (70-99) Bedside Glucose 129 mg/dl (70-90) HbA1c: 6.2^ 02/05/17 Recent Pertinent Medications The patient is currently receiving: * Basal insulin: NPH 40 units SQ w/ breakfast while receiving dexamethasone PO in the AM * Correctional Insulin: Novolog Correction per scale ACHS Goal Range: Low 110 mg/dL - High 140 mg/dL Correction Factor: 20 mg/dL/unit * Prandial insulin: Per carb ratio of 1 unit per 7 grams CHO consumed * Oral Agents: none currently (will resume metformin + sitagliptin tomorrow) Outpatient Anti-Diabetic Meds Metformin 1gm PO BID Pioglitazone 45mg PO daily Sitagliptin 100mg PO daily Assessment & Plan ASSESSMENT: 03/03/17 * Glycemic control has been quite good over the last 24 hrs: BSGs ranged 122-147 * Today the patient received one additional dose of dexamethasone 8mg PO x 1 which will likely lead to increased insulin resistance over the next 24+ hrs, after which insulin requirements will likely decrease. She did receive NPH with this dose of dexamethasone to address the anticipated resistance. No further doses of NPH are planned at this point. Fasting BSG 122 this AM after receiving NPH yesterday post-op (had received dexamethasone pre-op and intra-op) . * The current Novolog CF and CR have performed well - no changes required at this time * Given good outpt control with oral agents, the plan is to resume metformin and sitagliptin tomorrow as renal fxn adequate and she is tolerating her diet PLAN FOR INPATIENT GLYCEMIC CONTROL: * Continuing NPH 40 units SQ x 1 with dexamethasone dose this AM, then d/c * Continuing correction factor 20 mg/dl/unit * Continuing carb ratio 1 unit per 7 grams CHO consumed * Continuing goal range Low 110 mg/dL - High 140 mg/dL * Resume home doses of metformin and sitagliptin tomorrow RECOMMENDATIONS FOR DISCHARGE: * Resume home regimen of metformin + sitagliptin + pioglitazone * Please note that the plan above was derived based on current level of insulin resistance and hospital stress. These recommendations are appropriate for inpatient admission only. Plan of care upon discharge will need to be reassessed to avoid potential outpatient hypo/hyperglycemia. Thank you.
[2017-03-03] MEDS: CeleBREX 200 MG CAP PO SCH (21:13)
[2017-03-03] MEDS: SENNA 8.6 MG TAB PO SCH (21:13)
[2017-03-03] MEDS: ATORVASTATIN 40 MG TAB PO SCH (21:13)
[2017-03-03] MEDS: OXYCODONE HCL IR 5 MG TAB (IMMEDIATE RELEASE) PO PRN (21:20)
[2017-03-04] MEDS: LEVOTHYROXINE 100 MCG TAB PO SCH (05:38)
[2017-03-04] MEDS: ACETAMINOPHEN 500 MG TAB PO SCH (05:38)
[2017-03-04] MEDS: OXYCODONE HCL IR 5 MG TAB (IMMEDIATE RELEASE) PO PRN ×2 (05:51→10:32)
[2017-03-04 06:10] VITALS: BP 124/78; PULSE 76; TEMP 36.5; O2SAT 100
--- NOTE | 2017-03-04 07:05 | Orthopedic Progress Note ---
Orthopedic Progress Note Date of Service Mar 04, 2017. Subjective Post OP Day: 2 Reports: feeling well, pain controlled w PO medications, Denies: complaints, chest pain, SOB, nausea / vomiting, light headedness, calf pain Objective calves soft nontender, N/V intact, capillary refill less than 2 sec., incision C /D/I, A&O x3, toes mobile Date Time Temp Pulse Resp B/P (MAP) Pulse Ox O2 Delivery O2 Flow Rate FiO2 03/04/17 06:10 36.5 76 17 124/78 (93) 100 Room Air 03/03/17 23:25 Room Air 03/03/17 22:51 36.6 76 18 128/77 (94) 96 Room Air 03/03/17 21:05 58 16 118/61 (80) 97 Room Air 03/03/17 16:15 96 Room Air 03/03/17 15:37 36.6 57 18 113/69 (84) 96 Room Air 03/03/17 11:48 59 98 03/03/17 10:52 36.4 70 18 117/73 (88) 98 Room Air 03/03/17 08:02 Room Air Assessment & Plan Assessment: POD #2 s/p right tka -pt/ot -dvt proph with cassy/scd/asa -plan for d/c home with HHPT -labs stable Past Med History: Significant for hypertension, hypercholesterolemia, anxiety, shortness of breath while walking up hills, [id number] diabetes, osteoarthritis, hypothyroidism and GERD. Discharge Planning Discharge Planning: home with home health DVT Prophylaxis: TEDs, SCDs, ASA Therapy: Physical Therapy
[2017-03-04] MEDS ORDERED: RXC5 PO (07:08)
[2017-03-04] MEDS ORDERED: CLB200 PO (07:08)
[2017-03-04] MEDS ORDERED: ACET-24 PO (07:08)
[2017-03-04] MEDS ORDERED: ASPEC81 PO (07:08)
[2017-03-04] MEDS ORDERED: ONDA8TAB6 PO (07:08)
[2017-03-04] MEDS: INSULIN ASPART 100 UNITS/ML 3 ML PEN SC SCH (07:52)
[2017-03-04] MEDS: ASPIRIN 81 MG ECTAB PO SCH (07:53)
[2017-03-04] MEDS: FUROSEMIDE 20 MG TAB PO SCH (07:53)
[2017-03-04] MEDS: METOPROLOL TARTRATE 25 MG TAB PO SCH (07:53)
[2017-03-04] MEDS: SERTRALINE HCL 100 MG TAB PO SCH (07:54)
[2017-03-04] MEDS: LISINOPRIL 10 MG TAB PO SCH (07:54)
[2017-03-04] MEDS: MULTIVITAMIN TAB PO SCH (07:54)
[2017-03-04] MEDS: CeleBREX 200 MG CAP PO SCH (07:55)
[2017-03-04] MEDS: MAGNESIUM OXIDE 400 MG TAB PO SCH (07:55)
[2017-03-04] MEDS: PANTOprazole SOD 40 MG TAB PO SCH (07:55)
[2017-03-04] MEDS ORDERED: METFORMIN HCL 500 MG TAB PO SCH (08:30)
[2017-03-04 08:47] VITALS: BP 143/76; PULSE 82; O2SAT 98
[2017-03-04 09:51] VITALS: BP 143/76; PULSE 82; TEMP 36.5; O2SAT 98
[2017-03-04] MEDS ORDERED: SITAGLIPTIN 100 MG TAB PO SCH (21:00)
--- NOTE | 2017-03-13 14:08 | DISCHARGE SUMMARY ---
DISCHARGE DIAGNOSIS: Degenerative joint disease, right knee. SECONDARY DIAGNOSES: Type 2 diabetes and morbid obesity. CONSULTS: None. COMPLICATIONS: None. PROCEDURE: The patient underwent a right total knee arthroplasty with Dr. Garvey on 03/02/2017. BRIEF HISTORY: Please see previously dictated history and physical. HOSPITAL SUMMARY: The patient was admitted on the above day for the above procedure. Procedure went without complication. Postop day 1, the patient was feeling well without complaints. She denied chest pain or shortness of breath. Vital signs were stable. She was afebrile. Dressing was clean, dry and intact. She was neurovascularly intact. Calves were soft and nontender. Hemoglobin was 9.7. The patient began physical therapy per protocol. Postop day 2, the patient continued to improve. She denied chest pain or shortness of breath. Vital signs were stable. She was afebrile. Incision was clean, dry and intact. She was neurovascularly intact. Calves were soft and nontender. She continued to progress with physical therapy and was discharged home later that day in stable condition. For further review, please see the chart. Lab, x-ray data and discharge instructions as per chart.
[2017-04-24] MEDS ORDERED: FURO-85 PO (11:13)
[2017-04-24] MEDS ORDERED: LEVO100T7 PO (11:13)
[2017-04-24] MEDS ORDERED: METF-384 PO (11:13)
[2017-04-24] MEDS ORDERED: ACT/45 PO (11:13)
[2017-04-24] MEDS ORDERED: SULF800T23 PO (11:13)
[2017-04-24] MEDS ORDERED: DOCU100C PO (11:17)
[2017-04-24] MEDS ORDERED: FERR1TAB13 PO (11:17)
[2017-04-24] MEDS ORDERED: MULT-506 PO (11:17)
== END 2017-03-04 11:55 | disposition home health service (06) | DRG 470 ==
LOC: C.ACU 06:06 → C.3E 06:55 → ENRESERV 10:59
PROVIDERS: ADMIT Orthopaedic Surgery; ATTEND Orthopaedic Surgery
PROC: 0SRC0J9 Replacement of Right Knee Joint with Synthetic Substitute, Cemented, Open Approach (ICD-10-PCS; principal; 2017-03-02 08:00)
DX: M17.11 Unilateral primary osteoarthritis, right knee (principal); Z68.41 Body mass index [BMI] 40.0-44.9, adult; I10 Essential (primary) hypertension; E78.00 Pure hypercholesterolemia, unspecified; F41.9 Anxiety disorder, unspecified; M54.5 Low back pain; E03.9 Hypothyroidism, unspecified; M06.9 Rheumatoid arthritis, unspecified; K21.9 Gastro-esophageal reflux disease without esophagitis; E11.9 Type 2 diabetes mellitus without complications; E66.01 Morbid (severe) obesity due to excess calories; Z96.652 Presence of left artificial knee joint; R06.09 Other forms of dyspnea; Z98.1 Arthrodesis status; Z79.82 Long term (current) use of aspirin; Z79.1 Long term (current) use of non-steroidal anti-inflammatories (NSAID); Z79.51 Long term (current) use of inhaled steroids; Z79.84 Long term (current) use of oral hypoglycemic drugs

== ENCOUNTER 2017-04-26 06:32 | Inpatient (IN) | payer OTHER ==
[2017-04-20 13:11] LABS: BASO % 0.4 %; BASO ABS # 0.04 K/uL (0-0.2); COMPLETE YES; EOS % 1.2 %; HEMATOCRIT 32.7 % (37-47); IG% 0.3 %; LYMPH % 12.6 %; LYMPH ABS # 1.22 K/uL (1.2-3.4); MEAN CELL VOLUME 86.3 fL (80-100); MEAN CORPUSCULAR HEMOGLOBIN 27.2 pg (25-34); MEAN CORPUSCULAR HGB CONC 31.5 g/dl (32-36); MEAN PLATELET VOLUME 9.7 fL (7.4-10.4); MONO % 5.8 %; NEUT % 79.7 %; PLATELET COUNT 344 K/uL (130-400); RED BLOOD COUNT 3.79 M/uL (4.2-5.4); WHITE BLOOD COUNT 9.67 K/uL (4.8-10.8)
[2017-04-20 13:12] LABS: ESTIMATED AVERAGE GLUCOSE 126 mg/dl; HA1C FLAG Normal (Normal)
[2017-04-20 13:12] LABS: URINE APPEARANCE CLEAR (CLEAR); URINE BILIRUBIN NEG (NEG); URINE COLOR YELLOW; URINE NITRITE NEG (NEG); URINE PH 6.5 (4.5-7.5); URINE SPECIFIC GRAVITY 1.017 (1.000-1.030); UROBILINOGEN NEG (NEG)
[2017-04-20 13:16] LABS: MANUAL MICROSCOPIC REQUIRED? NO; REVIEW REQ? NO
[2017-04-20 13:24] LABS: PARTIAL THROMBOPLASTIN RATIO 1.3; PROTHROMBIN TIME (PATIENT) 10.7 SECONDS (9.0-12.0)
[2017-04-20 13:25] LABS: ALT/SGPT 20 U/L (12-78); BLOOD UREA NITROGEN 14 mg/dl (7-18); BUN/CREATININE RATIO 13.8 (10-20); CALCIUM 9.3 mg/dl (8.5-10.1); CARBON DIOXIDE 23 mmol/L (21-32); CHLORIDE 105 mmol/L (98-107); GLUCOSE 102 mg/dl (70-99); POTASSIUM 4.1 mmol/L (3.5-5.1); SODIUM 138 mmol/L (136-145)
[2017-04-20 13:36] LABS: ALB/GLOB RATIO 0.7 (0.9-2); ALKALINE PHOSPHATASE 115 U/L (45-117); AST/SGOT 14 U/L (15-37); THYROID STIMULATING HORMONE 0.526 uIu/ml (0.300-4.500)
--- NOTE | 2017-04-23 08:47 | History and Physical ---
History & Physical Date Apr 23, 2017. Chief Complaint Right knee non-healing wound History of Present Illness The patient is a 67 year old female with complaints of Right knee non-healing wound. Patient previous had a right TKA done on 03/02/17. Her wound had small amount of serosanguineous drainage. Several options were tried with outpatient wound care. The wound did not progressively get better. We discussed further outpatient wound care or operative debridement and she elected for debridement. We discussed the fact that we may have to open the entire wound if there is any infection that tracts into the knee and expressed understanding. Past Medical/Surgical History Medical Problems: (1) Right knee DJD (2) Hypertension (3) Hypercholesterolemia (4) Anxiety (5) NIDDM (6) Hypothyroidism (7) GERD PSHx: partial thyroidectomy, carpal tunnel of the right and left hand, total hysterectomy, Left TKA, Right TKA, lumpectomy of the left and right breast, lower lumbar fusion and nerve decompression. Additional History Hepatic Disease: No Endocrine Disorder: Yes Kidney Disease: No Hypertension: Yes Heart Disease: No Bleeding Tendencies: No Infectious Diseases: No Allergies Coded Allergies: Mirabegron (Unverified Allergy, Unknown, SEVERE CONSTIPATION HEADACHE, 06/08) Paroxetine (Verified Allergy, Unknown, pruritis, 03/02/17) Venlafaxine (Verified Allergy, Unknown, pruritis, 03/02/17) Home Medications Scheduled Acetaminophen (Sb Non-Aspirin Extra Stre), 1,000 MG PO Q8H Aspirin (Aspirin EC Low Dose), 81 MG PO BID Atorvastatin (Lipitor), 40 MG PO HS Celecoxib (Celebrex), 200 MG PO BID Fluticasone Propionate (Nasal) (Flonase Allergy Relief), 2 SPRAYS DMITRIY PRN Furosemide (Lasix *), 20 MG PO DAILY PRN Levothyroxine (Levoxyl), 0.1 MG PO QAM Lisinopril (Prinivil), 10 MG PO QAM Magnesium Oxide (Mag-Ox), 400 MG PO BID Metformin HCL (Glucophage *), 1,000 MG PO BID Metoprolol Tartrate (Lopressor), 0.5 TAB PO BID Omeprazole (Prilosec), 20 MG PO HS Pioglitazone (Actos *), 45 MG PO QAM Sertraline (Zoloft), 100 MG PO QAM Sitagliptin Phosphate (Januvia), 100 MG PO QPM Scheduled PRN Amoxicillin (Amoxil), 2,000 MG PO UD PRN for N Ondansetron Hcl (Zofran), 8 MG PO Q8 PRN for Nausea Oxycodone HCl (Oxycodone HCl), 5-10 MG PO Q4H PRN for Pain Physical Examination Skin: warm/dry, no rash Eyes: normal inspection, EOMI ENT: normal ENT inspection Head: normocephalic, atraumatic Neck: supple, no adenopathy Respiratory/Chest: lungs clear, normal breath sounds Cardiovascular: regular rate, rhythm, no murmur Abdomen / GI: normal bowel sounds, non tender Extremities: + pertinent finding (Mild serosanguinious drainage from distal inicision. ROM 0-90 actively. ) Neurologic/Psych: no motor/sensory deficits, alert, oriented x 3 Diagnosis S/P right TKA with non-healing wound Plan of Treatment Patient is scheduled for a Right knee I & D with possible poly exchange. Patient underwent a Right TKA on 03/02/17 and developed a non-healing wound at the distal aspect of her incision. Outpatient treatment was tried with little success. She would like to proceed with right knee I & D with possible poly exchange. Risks and benefits to surgery were discussed that included but not limited to infection, dvt, pain, stiffness, failure to relieve all symptoms, damage to blood vessels, damage to nerves, needed for revision surgeries, PE, and anesthesia risks were all discussed with the patient and she wishes to proceed. All questions were answered to her satisfaction.
[2017-04-24 11:18] VITALS: Ht 160 cm; Wt 105.2 kg
[2017-04-26] VITALS (9 sets, daily range): BP systolic 114–165; BP diastolic 69–88; PULSE 72–90; TEMP 36.6–37.2; O2SAT 95–97
[~2017-04-26] VITALS: Ht 160 cm; Wt 105.2 kg
[~2017-04-26 06:32] MED LIST changes: +ACT/45 PO; -ACT15 PO; +ASPEC81 PO; -ASPI81TA28 PO; +CLB200 PO; -DICL-201 PO; +DOCU100C PO; +FERR1TAB13 PO; +FURO-85 PO; -GLC500 PO; -LACTATED RINGER'S 1000ML 500 ML IV ONE; -LEVO100T48 PO; +LEVO100T7 PO; -LSX20 PO; +METF-384 PO; +MULT-506 PO; +PATIENT'S HEIGHT AND/OR WEIGHT NEEDED SCH; -ROPIVACAINE 5MG/ML 30 ML 150 MG, BUPIVACAINE/EPINEPHR 0.5% MPF 30 ML, KETOROLAC TROMETH... INFIL SCH; +SULF800T23 PO; +VANCOMYCIN INJ 1,500 MG in SODIUM CHLORIDE 0.9% 500ML 500 ML IV SCH
[2017-04-26] MEDS ORDERED: BUPIVACAINE 0.5 % 5 MG/1 ML PF 10ML VIAL ONE (06:43)
[2017-04-26] MEDS ORDERED: EpINEphrine INJ 1MG/ML AMP 1 MG/ML AMP ONE (06:43)
[2017-04-26] MEDS ORDERED: BUPIVACAINE 0.25% 30 ML VIAL ONE (06:43)
[2017-04-26] MEDS ORDERED: ONDANSETRON INJ 2 MG/ML 2 ML VIAL ONE (07:41)
[2017-04-26] MEDS ORDERED: FENTANYL CITRATE INJ 50 MCG/1 ML 2 ML VIAL ONE (07:41)
[2017-04-26] MEDS ORDERED: LIDOCAINE HCL 2% 2 ML VIAL (20MG/ML) ONE (07:41)
[2017-04-26] MEDS ORDERED: MIDAZOLAM HCL 1 MG/ML 2ML VIAL ONE (07:41)
[2017-04-26] MEDS ORDERED: PROPOFOL IV EMULSION 10 MG/ML 20 ML VIAL IV ONE ×2 (07:41→09:17)
[2017-04-26] MEDS: TRANEXAMIC ACID INJ 1,000 MG in SODIUM CHLORIDE 0.9% 100ML 100 ML IV SCH ×2 (07:48→12:31)
[2017-04-26] MEDS ORDERED: POVIDONE-IODINE OP SOLN 30 ML BTL ONE (07:51)
[2017-04-26] MEDS ORDERED: BACITRACIN 50000 UNIT VIAL ONE (07:51)
[2017-04-26] MEDS ORDERED: ONDANSETRON INJ 2 MG/ML 2 ML VIAL IV PRN ×2 (08:30→11:15)
[2017-04-26] MEDS ORDERED: FLUMAZENIL 0.1 MG/1 ML 10 ML VIAL IV PRN (08:30)
[2017-04-26] MEDS ORDERED: ATROPINE SULFATE 0.1 MG/ML 5ML SYR IV PRN (08:30)
[2017-04-26] MEDS ORDERED: PHENYLEPHRINE 100MCG/ML 5ML SYR IV PRN (08:30)
[2017-04-26] MEDS ORDERED: LABETALOL HCL IV 5 MG/ML 20ML IV PRN (08:30)
[2017-04-26] MEDS ORDERED: MEPERIDINE HCL 25 MG/ML CARP IV PRN (08:30)
[2017-04-26] MEDS ORDERED: FENTANYL CITRATE INJ 50 MCG/1 ML 2 ML VIAL IV PRN (08:30)
[2017-04-26] MEDS ORDERED: EpHEDrine SULFATE INJ 50 MG/ML AMP IV PRN (08:30)
[2017-04-26] MEDS ORDERED: HYDROmorphone INJ 2 MG/ML SYR/VIAL IV PRN (08:30)
[2017-04-26] MEDS ORDERED: NALOXONE HCL 0.4 MG/1 ML VIAL/CARP IV PRN (08:30)
[2017-04-26] MEDS ORDERED: EpHEDrine SULFATE 50MG/5ML SYR ONE (09:25)
[2017-04-26] MEDS ORDERED: PHENYLEPHRINE 100MCG/ML 5ML SYR ONE (09:25)
--- NOTE | 2017-04-26 11:06 | Anesthesiology Progress Note ---
Anesthesia Post Op Note Date & Time Apr 26, 2017 at 11:06 Vital Signs Pain Intensity: 0 Vital Signs Past 12 Hours Date Time Temp Pulse Resp B/P (MAP) Pulse Ox O2 Delivery O2 Flow Rate FiO2 04/26/17 11:00 81 16 110/62 100 Oxymask 10 04/26/17 10:50 36.3 85 16 116/60 100 Oxymask 10 04/26/17 10:40 36.3 85 16 99/60 100 Oxymask 10 04/26/17 07:16 36.9 90 18 128/77 95 Room Air Notes Mental Status: alert / awake / arousable, participated in evaluation Pt Amnestic to Procedure: Yes Nausea / Vomiting: adequately controlled Pain: adequately controlled Airway Patency, RR, SpO2: stable & adequate BP & HR: stable & adequate Hydration State: stable & adequate Neuraxial Anesthesia: was administered, sensory block is resolving Anesthetic Complications: no major complications apparent
--- NOTE | 2017-04-26 11:11 | [facility] Operative Report ---
Operative Report Operative Date Apr 26, 2017. Pre-Operative Diagnosis Status post right total knee arthroplasty with non-healing wound Post-Operative Diagnosis same as pre-operative Procedure(s) Performed Right Knee Incision and Drainage, Right Knee Poly Exchange Status Post Right Total Knee Arthroplasty Surgeon Dr. Garvey Turner Machine Operator Surgeon(s) none Estimated Blood Loss 20ml Findings no pedro purulence, wound tracked deep to knee joint Specimens Specimen A: explant right knee Culture #1 Right total knee culture Drains 2 hemoavc Anesthesia spinal, adductor canal block Complication(s) None Disposition Recovery Room / PACU Indications 67-year-old female with a previous history of diabetes who previously undergone a right total knee arthroplasty in February. The vast majority of her incision healed. The distal aspect of her wound is slow to heal. She had some chronic serous drainage from the distal aspect of the wound. She been treated with dressing changes with Xeroform and iodoform. She had been on prophylactic Bactrim. There had never been any pedro purulence to the wound. No significant erythema from the wound. No significant effusion. She then had fairly significant increase in the amount of serous drainage that she had been having. She failed local wound care and we elected to proceed with irrigation and debridement with exploration of the wound. If this was a self superficial seroma that we would perform a superficial I&D. I did discuss with her however that if the region tracks deeply then I would perform an aggressive irrigation and debridement with polyethylene exchange. Description of Procedure Risks benefits and alternatives of surgery including but not limited to infection DVT pain stiffness need for surgery damage to blood vessels damage to nerves or risks of anesthesia were discussed with the patient and she wished to proceed. Patient was identified in the laterality was confirmed and marked. A well-padded tourniquet was applied and then the limb was prepped and draped in standard manner with ChloraPrep. The limb was exsanguinated and the tourniquet was inflated. The previous incision had an area distally with granulation tissue. The most proximal aspect had a small opening with serous drainage. There is no purulent drainage. No surrounding erythema. Wound measured about a centimeter and a half in length by 1 cm width. The the incision proximally was well-healed with no erythema or drainage. I opened the incision a portion proximally along the region of the wound. I then bluntly dissected with my finger and the area did track deeply to the knee. I then reopened the entirety of the incision. There was some serous fluid encountered but no purulent material was encountered. I did take a wound culture in this region. The vast majority of the arthrotomy was well-healed. The region that was open was along the patellar tendon. I dissected some skin flaps to get mobilization and then reopened the medial parapatellar arthrotomy. The deep tissues in the lateral gutter medial gutter and suprapatellar pouch looked relatively normal. There was evidence of resolving hematoma. I removed the previous polyethylene and performed a thorough debridement of the posterior capsule. I performed a sharp debridement of the skin edges and then dissected did a thorough debridement of the tissues down to level of bone in the region that had been open. Any other questionable material that was encountered was sharply excised. I then thoroughly irrigated the wound with Pulsavac with bacitracin and the fluid for total 9 L. We then changed our gloves placed fresh instruments and placed new drapes down. A fresh polyethylene was placed this was a 3-4 x 10 mm right. Which is the same size that she had previously. A betadine soak was performed. 2 Hemovac drains were placed. The arthrotomy was then closed with interrupted #1 Vicryl suture. The subcutaneous tissue was closed with interrupted 2-0 Vicryl suture. The skin was closed with a combination of 3-0 and 2-0 nylon. A Prevena wound VAC was placed. Sterile dressings applied and the tourniquet was released. All needle and sponge counts were correct at the end of the procedure patient was transferred to the PACU in stable condition without apparent complication. I attest to the content of the Intraoperative Record and any orders documented therein. Any exceptions are noted below.
[2017-04-26] MEDS ORDERED: ZOLPIDEM TARTRATE 5 MG TAB PO PRN (11:15)
[2017-04-26] MEDS ORDERED: MoRPHine SULFATE 2 MG/ML CARP IV PRN (11:15)
[2017-04-26] MEDS ORDERED: METOCLOPRAMIDE HCL INJ 5 MG/ML 2 ML VIAL IV PRN (11:15)
[2017-04-26] MEDS ORDERED: FUROSEMIDE 20 MG TAB PO PRN (11:15)
[2017-04-26] MEDS ORDERED: ALUMINUM/MAGNESIUM/SIMETH (MAALOX MAX) 30 ML UDC PO PRN (11:15)
--- NOTE | 2017-04-26 11:59 | DIAGNOSTIC IMAGING REPORT ---
R KNEE 1 OR 2 VIEWS ROUTINE CLINICAL HISTORY: Postoperative evaluation. COMPARISON: Right knee radiographs March 02, 2017. FINDINGS: Alignment of the right knee arthroplasty is anatomic. There is no periprosthetic fracture or unexpected radiopaque foreign body. Surgical drains are in place. IMPRESSION: Expected postoperative appearance of right knee arthroplasty. Electronically signed by: Nicolas Thomas M.D. 04/26/2017 11:58 AM Dictated Date/Time: 04/26/2017 11:57 AM
[2017-04-26] MEDS: FERROUS GLUCONATE 324 MG TAB PO SCH ×2 (13:10→17:50)
[2017-04-26] MEDS: SODIUM CHLORIDE 0.9% 1000ML 1,000 ML IV SCH ×2 (13:10→21:37)
[2017-04-26] MEDS: OXYCODONE HCL IR 5 MG TAB (IMMEDIATE RELEASE) PO PRN ×2 (13:18→19:53)
[2017-04-26] MEDS ORDERED: GLUCOSE 40% GEL 15 GM TUBE PO PRN (13:45)
[2017-04-26] MEDS ORDERED: HydrALAZINE HCL 20 MG/ML VIAL IV. PRN (13:45)
[2017-04-26] MEDS ORDERED: DEXTROSE 50% 50 ML SYR IV PRN (13:45)
[2017-04-26] MEDS ORDERED: GLUCAGON FOR INJ 1 MG VIAL SQ PRN (13:45)
[2017-04-26] MEDS ORDERED: GLUCOSE 10 TABS/TUBE PO PRN (13:45)
--- NOTE | 2017-04-26 13:58 | Medical Consult ---
Consultation Date of Consultation: Apr 26, 2017. Attending Physician: Marcos Garvey M.D. Reason for Consultation: Medical management History of Present Illness This is a 67 y/o female with a history of HTN, HLD, DM II, hypothyroidism, depression, and GERD who presents s/p right knee I&D and right knee poly exchange with Dr. Garvey on 04/26 for medical management. The patient recently had a R TKA on 03/02/17 and developed a non-healing wound at the right knee that failed outpatient wound care management. The patient complains of a mild burning pain in her right knee that radiates down the anterior aspect of her right lower leg. She states that she just received pain medication and this is improving. She is otherwise feeling well. She is tolerating a PO diet and urinating without difficulty. She has not yet passed gas or had a bowel movement postoperatively. The patient denies fevers, chills, sweats, chest pain , palpitations, claudication, cough, wheezing, shortness of breath, nausea, vomiting, abdominal pain, dysuria, hematuria, urinary retention, paralysis, weakness, numbness and tingling. Past Medical/Surgical History HTN HLD DM II Hypothyroidism Depression GERD S/p R TKA Family History Cancer (colon, brain) Diabetes mellitus Hypertension Myocardial infarction Social History Smoking Status: Never Smoker Smokeless Tobacco Use: No Alcohol Use: none Drug Use: none Marital Status: Housing Status: lives with family ( and grandson) Occupation Status: retired Allergies Coded Allergies: Mirabegron (Unverified Allergy, Unknown, SEVERE CONSTIPATION HEADACHE, 04/26/17) Paroxetine (Verified Allergy, Unknown, pruritis, 04/26/17) Venlafaxine (Verified Allergy, Unknown, pruritis, 04/26/17) Current Inpatient Medications Current Inpatient Medications Medications (Trade) Dose Ordered Sig/Keyana Route Start Time Stop Time Status Last Admin Dose Admin Cefazolin Sodium 60 ml @ 100 mls/hr PREOP IV 04/26/17 06:00 04/26/17 18:00 Acetaminophen (Tylenol Tab) 1,000 mg PREOP PO 04/26/17 06:00 04/26/17 18:00 04/26/17 07:28 1,000 MG Celecoxib (CeleBREX CAP) 200 mg PREOP PO 04/26/17 06:00 04/26/17 18:00 04/26/17 07:29 200 MG Dexamethasone (Decadron Tab) 8 mg PREOP PO 04/26/17 06:00 04/26/17 18:00 04/26/17 07:28 8 MG Famotidine (Pepcid Tab) 20 mg PREOP PO 04/26/17 06:00 04/26/17 18:00 04/26/17 07:30 20 MG Gabapentin (Neurontin Cap) 300 mg PREOP PO 04/26/17 06:00 04/26/17 18:00 04/26/17 07:27 300 MG Metoclopramide HCl (Reglan Tab) 10 mg PREOP PO 04/26/17 06:00 04/26/17 18:00 04/26/17 07:28 10 MG Tranexamic Acid 1000 mg/Sodium Chloride 110 ml @ 660 mls/hr TODAY@06,0630 IV 04/26/17 06:00 04/26/17 18:00 04/26/17 07:48 660 MLS/HR Vancomycin HCl 1500 mg/Sodium Chloride 530 ml @ 200 mls/hr PREOP IV 04/26/17 06:00 04/27/17 05:59 04/26/17 07:04 200 MLS/HR Atorvastatin Calcium (Lipitor Tab) 40 mg HS PO 04/26/17 21:00 05/26/17 20:59 Docusate Sodium (coLACE CAP) 100 mg BID PRN PO 04/26/17 11:15 05/26/17 11:14 Fluticasone Propionate (Flonase Nasal [place]) 2 sprays DAILY PRN DMITRIY 04/27/17 09:00 05/27/17 08:59 Furosemide (Lasix Tab) 20 mg DAILY PRN PO 04/26/17 11:15 05/26/17 11:14 Levothyroxine Sodium (Synthroid Tab) 100 mcg DAILYBB PO 04/27/17 06:00 05/27/17 05:59 Lisinopril (Zestril Tab) 10 mg QAM PO 04/27/17 09:00 05/27/17 08:59 Magnesium Oxide (Mag-Ox Tab) 400 mg BID PO 04/26/17 21:00 05/26/17 20:59 Metformin HCl (Glucophage Tab) 1,000 mg BIDM PO 04/26/17 17:45 11/4/17 17:44 Metoprolol Tartrate (Lopressor Tab) 12.5 mg BID PO 04/26/17 21:00 05/26/17 20:59 Multivitamins (Multivitamin Tab) 1 tab QAM PO 04/27/17 09:00 05/27/17 08:59 Pioglitazone HCl (ACTos TAB) 45 mg QAM PO 04/27/17 09:00 05/27/17 08:59 Sertraline HCl (Zoloft Tab) 100 mg QAM PO 04/27/17 09:00 05/27/17 08:59 Sitagliptin Phosphate (Januvia Tab) 100 mg QPM PO 04/26/17 21:00 05/26/17 20:59 Sodium Chloride 1,000 ml @ 100 mls/hr Q10H IV 04/26/17 11:11 04/27/17 11:10 04/26/17 13:10 100 MLS/HR Vancomycin HCl 1500 mg/Sodium Chloride 530 ml @ 125 mls/hr Q12H IV 04/26/17 19:00 04/26/17 23:15 Celecoxib (CeleBREX CAP) 200 mg BID PO 04/26/17 21:00 05/26/17 20:59 Oxycodone HCl (Roxicodone Immediate Rel Tab) 1 TABLET FOR PAIN RATING... Q4H PRN PO 04/26/17 11:15 05/10/17 11:14 04/26/17 13:18 10 MG Morphine Sulfate (MoRPHine SULFATE INJ) 2 mg Q2H PRN IV 04/26/17 11:15 05/10/17 11:14 Acetaminophen (Tylenol Tab) 1,000 mg Q8H PO 04/26/17 14:00 05/26/17 13:59 Diphenhydramine HCl (Benadryl Cap) 25 mg Q8H PRN PO 04/26/17 11:15 05/26/17 11:14 Al Hydrox/Mg Hydrox/Simethicone (Maalox Max Susp) 15 ml Q4H PRN PO 04/26/17 11:15 05/26/17 11:14 Zolpidem Tartrate (Ambien Tab) 5 mg HSZ PRN PO 04/26/17 11:15 05/26/17 11:14 Ondansetron HCl (Zofran Inj) 4 mg Q6H PRN IV 04/26/17 11:15 05/26/17 11:14 Metoclopramide HCl (Reglan Inj) 10 mg Q6H PRN IV 04/26/17 11:15 05/26/17 11:14 Ferrous Gluconate (Ferrous Gluconate Tab) 324 mg TIDM PO 04/26/17 12:30 05/26/17 12:29 04/26/17 13:10 324 MG Pantoprazole Sodium (Protonix Tab) 40 mg QAM PO 04/27/17 09:00 05/27/17 08:59 Aspirin (Ecotrin Tab) 81 mg BID PO 04/26/17 21:00 05/26/17 20:59 Review of Systems See HPI for pertinent positives and negatives. All other systems reviewed and negative. Physical Exam Date Time Temp Pulse Resp B/P (MAP) Pulse Ox O2 Delivery O2 Flow Rate FiO2 04/26/17 13:14 37.1 90 18 124/73 (90) 97 Nasal Cannula 2.0 04/26/17 12:45 37.1 85 18 124/73 (90) 97 Nasal Cannula 2.0 04/26/17 12:15 96 Nasal Cannula 2.0 04/26/17 12:15 37.0 90 16 114/74 (87) 96 Nasal Cannula 2.0 04/26/17 12:15 96 Nasal Cannula 2.0 04/26/17 11:35 86 16 118/63 97 Nasal Cannula 2 04/26/17 11:20 37 86 16 101/61 97 Nasal Cannula 2 04/26/17 11:10 86 16 115/63 97 Nasal Cannula 2 04/26/17 11:00 81 16 110/62 100 Oxymask 10 04/26/17 10:50 36.3 85 16 116/60 100 Oxymask 10 04/26/17 10:40 36.3 85 16 99/60 100 Oxymask 10 04/26/17 07:16 36.9 90 18 128/77 95 Room Air General appearance: +Morbidly obese. Well-developed, well-nourished, no apparent distress Head: Normocephalic, atraumatic Eyes: Normal inspection, PERRL, EOMI ENT: Normal ENT inspection, hearing grossly normal, pharynx normal Neck: Supple, no JVD, trachea midline Respiratory/Chest: Lungs clear to auscultation, normal breath sounds, no respiratory distress Cardiovascular: +Systolic murmur. Regular rate & rhythm, no gallop Abdomen/GI: Normal bowel sounds, non-tender, soft Extremities/Musculoskeletal: +RLE wrapped in yarely bandage. Normal inspection, no calf tenderness, no pedal edema Neurological/Psych: Alert, normal mood/affect, oriented x 3 Skin: Normal color, warm/dry, no rash Laboratory Results Last 24 Hours Test 04/26/17 07:29 04/26/17 10:43 Bedside Glucose 139 mg/dl 144 mg/dl Assessment & Plan 67 y/o female with a history of HTN, HLD, DM II, hypothyroidism, depression, and GERD who presents s/p right knee I&D and right knee poly exchange with Dr. Garvey on 04/26 for medical management. S/p right knee I&D and poly exchange--POD #0 -Pain management, DVT prophylaxis, and PT/OT as per primary team -AVSS -Infectious disease consulted. Currently on vancomycin HTN--stable -Continue Lopressor 12.5 mg PO BID HLD -Continue Lipitor 40 mg PO hs DM II--last HgbA1c checked 04/20/17 was 6.0 -Hold metformin, Januvia and Actos -Insulin sliding scale -Check BSGs q ac and qhs Hypothyroidism -Continue Synthroid 100 mcg PO qd Depression -Continue Zoloft 100 mg PO qd GERD -Prilosec converted to Protonix 40 mg PO qd Code Status -Level I, FULL RESUSCITATION STATUS Thank you for this consultation. We will continue to follow. Reviewed: Pt Seen/Exam by Me History Doing well post op. Does have pain, but manageable. Tolerated PO without issue. Denies SOB, chest pain. Agree with HPI/ROS as noted. General Appearance: no apparent distress, obese Respiratory: normal breath sounds, no respiratory distress Cardiovascular: normal peripheral pulses, regular rate, rhythm Gastrointestinal: non tender, soft Extremities: non-tender, no pedal edema Neurologic/Psychiatric: alert, oriented x 3 Skin Characteristics: normal color, warm/dry Assessment/Plan Agree with plan as outlined above s/p R knee I&D after failing outpt management Recent TKA 03/02/17 abx with ID c/s pending
[2017-04-26 14:22] LABS: MEAN CELL VOLUME 85.7 fL (80-100); MEAN CORPUSCULAR HEMOGLOBIN 26.9 pg (25-34); MEAN CORPUSCULAR HGB CONC 31.3 g/dl (32-36); MEAN PLATELET VOLUME 8.8 fL (7.4-10.4); PLATELET COUNT 460 K/uL (130-400); WHITE BLOOD COUNT 9.91 K/uL (4.8-10.8)
[2017-04-26] MEDS: ACETAMINOPHEN 500 MG TAB PO SCH ×2 (14:33→21:38)
[2017-04-26 14:47] LABS: BUN/CREATININE RATIO 11.8 (10-20); CALCIUM 8.7 mg/dl (8.5-10.1)
[2017-04-26] MEDS ORDERED: INFLUENZA ADMINISTRATION CHARGE ONE (15:00)
[2017-04-26] MEDS ORDERED: INFLUENZA VACCINE HIGH DOSE 65+ 0.5 ML SYR IM. ONE (15:00)
--- NOTE | 2017-04-26 15:02 | Progress Note ---
Progress Note Date of Service Apr 26, 2017. Progress Note ID Consult Dictated #[id number] A/P: 1. Prosthetic joint infection - right knee -Continue vanco, follow cultures -Will likely require prolonged abx -Will follow, thank you
--- NOTE | 2017-04-26 15:02 | INFECT. DISEASE CONSULTATION ---
DATE OF CONSULTATION: 04/26/2017 REQUESTING PHYSICIAN: Dr. Garvey. HISTORY OF PRESENT ILLNESS: This is a 67-year-old female who underwent a right knee replacement on March 02. She states that she had drainage from the knee wound immediately after surgery and this persisted. She initially got 7 days worth of amoxicillin immediately postoperatively, but did not have significant improvement. She did follow up with her orthopedic surgeon recently and was given a course of Bactrim for 12 days. She was taking this Bactrim up until the time of admission. She did go to the OR today and had a poly exchange. Cultures were drawn in the operating room and results of those are pending. There are many white blood cells and gram positive cocci on Gram stain. She was placed empirically on vancomycin postoperatively and she remains on this. On my examination, she does admit to some pain in the knee, but states that it is well controlled. She denies any fevers or chills at home. She denies any chest pain, cough, shortness of breath, nausea, vomiting or diarrhea. All remaining review of systems is reviewed and is negative. PAST MEDICAL HISTORY: Significant for right knee arthritis, hypertension, high cholesterol, anxiety, type 2 diabetes, hypothyroidism and GERD. PAST SURGICAL HISTORY: Significant for partial thyroidectomy, carpal tunnel release, hysterectomy, bilateral knee replacements with poly exchange earlier today, lumpectomy of bilateral breasts, lumbar fusion and nerve decompression. FAMILY HISTORY: Noncontributory. ALLERGIES: INCLUDE PAROXETINE AND VENLAFAXINE. CURRENT MEDICATIONS: Include Flonase, lisinopril, multivitamins, Zoloft, Protonix, Synthroid, Lipitor, magnesium, Lopressor, Celebrex, aspirin, vancomycin, insulin, hydralazine, iron, Roxicodone, morphine, Benadryl, Maalox, Ambien, Zofran, Reglan, Tylenol, Celebrex, Decadron, Pepcid, and Neurontin. PHYSICAL EXAMINATION: VITAL SIGNS: She is afebrile, pulse is 90, respiratory rate 18, blood pressure 165/80, and oxygen saturation is 97% on 2 liters. GENERAL: She is awake, alert and oriented x3. She is in no acute distress. HEENT: Mucous membranes are moist. Extraocular muscles are intact. HEART: Regular. LUNGS: Clear bilaterally. ABDOMEN: Soft, nontender, and nondistended. EXTREMITIES: There is no lower extremity edema. Surgical dressing is clean, dry and intact. LABORATORY STUDIES: CBC today reveals a white blood cell count of 9.9, hemoglobin 9.4 and platelets are 460. Sed rate is 59. Chemistry panel from the reveals a sodium of 138, potassium of 4.1, chloride 105, bicarbonate 23, BUN 14, creatinine 1, and glucose 144. LFTs are within normal limits. TSH is normal. Gram stain is as above. Knee x-ray shows postoperative changes. ASSESSMENT AND PLAN: Postop prosthetic knee infection. She will remain on empiric antibiotics pending the results of her cultures. She likely will require prolonged course of IV antibiotics. Further recommendations will be provided upon microdata. Thank you for this consultation.
[2017-04-26] MEDS: INSULIN ASPART 100 UNITS/ML 3 ML PEN SC SCH ×2 (17:15→21:17)
[2017-04-26] MEDS ORDERED: METFORMIN HCL 500 MG TAB PO SCH (17:45)
[2017-04-26] MEDS ORDERED: VANCOMYCIN INJ 1,500 MG in SODIUM CHLORIDE 0.9% 500ML 500 ML IV SCH (19:00)
[2017-04-26] MEDS ORDERED: NON-FORMULARY MEDICATION (Omeprazole (Prilosec) 20 MG) PO SCH (21:00)
[2017-04-26] MEDS ORDERED: SITAGLIPTIN 100 MG TAB PO SCH (21:00)
[2017-04-26] MEDS: ASPIRIN 81 MG ECTAB PO SCH (21:09)
[2017-04-26] MEDS: ATORVASTATIN 40 MG TAB PO SCH (21:09)
[2017-04-26] MEDS: CeleBREX 200 MG CAP PO SCH (21:09)
[2017-04-26] MEDS: MAGNESIUM OXIDE 400 MG TAB PO SCH (21:09)
[2017-04-26] MEDS: METOPROLOL TARTRATE 25 MG TAB PO SCH (21:09)
[2017-04-27] VITALS (7 sets, daily range): BP systolic 108–160; BP diastolic 68–81; PULSE 65–88; TEMP 36.5–37.2; O2SAT 94–97
[2017-04-27] MEDS: OXYCODONE HCL IR 5 MG TAB (IMMEDIATE RELEASE) PO PRN ×4 (02:15→19:26)
[2017-04-27] MEDS: ACETAMINOPHEN 500 MG TAB PO SCH ×3 (06:01→21:16)
[2017-04-27] MEDS: LEVOTHYROXINE 100 MCG TAB PO SCH (06:01)
[2017-04-27] MEDS: SODIUM CHLORIDE 0.9% 1000ML 1,000 ML IV SCH (06:02)
[2017-04-27 06:58] LABS: HEMATOCRIT 29.5 % (37-47); MEAN CORPUSCULAR HEMOGLOBIN 27.1 pg (25-34); MEAN CORPUSCULAR HGB CONC 31.5 g/dl (32-36); MEAN PLATELET VOLUME 8.6 fL (7.4-10.4); PLATELET COUNT 527 K/uL (130-400); RED BLOOD COUNT 3.43 M/uL (4.2-5.4); WHITE BLOOD COUNT 12.11 K/uL (4.8-10.8)
--- NOTE | 2017-04-27 07:08 | Orthopedic Progress Note ---
Orthopedic Progress Note Date of Service Apr 27, 2017. Subjective Post OP Day: 1 Reports: feeling well, pain controlled w PO medications, Denies: complaints, chest pain, SOB, nausea / vomiting, light headedness, calf pain Objective calves soft nontender, N/V intact, capillary refill less than 2 sec., dressing C /D/I, A&O x3, toes mobile, hemovac drainage (50cc) Date Time Temp Pulse Resp B/P (MAP) Pulse Ox O2 Delivery O2 Flow Rate FiO2 04/27/17 03:47 36.8 65 16 128/72 (90) 97 Room Air 04/26/17 23:31 36.6 72 16 114/69 (84) 96 Room Air 04/26/17 22:25 Room Air 04/26/17 21:00 80 129/77 (94) 04/26/17 19:40 36.7 81 16 124/69 (87) 95 Room Air 04/26/17 16:13 Room Air 04/26/17 15:15 36.6 87 18 134/79 (97) 97 Nasal Cannula 2.0 04/26/17 14:22 37.2 90 18 165/88 (113) 97 Nasal Cannula 2.0 04/26/17 13:14 37.1 90 18 124/73 (90) 97 Nasal Cannula 2.0 04/26/17 12:45 37.1 85 18 124/73 (90) 97 Nasal Cannula 2.0 04/26/17 12:15 96 Nasal Cannula 2.0 04/26/17 12:15 37.0 90 16 114/74 (87) 96 Nasal Cannula 2.0 04/26/17 12:15 96 Nasal Cannula 2.0 04/26/17 11:35 86 16 118/63 97 Nasal Cannula 2 04/26/17 11:20 37 86 16 101/61 97 Nasal Cannula 2 04/26/17 11:10 86 16 115/63 97 Nasal Cannula 2 04/26/17 11:00 81 16 110/62 100 Oxymask 10 04/26/17 10:50 36.3 85 16 116/60 100 Oxymask 10 04/26/17 10:40 36.3 85 16 99/60 100 Oxymask 10 04/26/17 07:16 36.9 90 18 128/77 95 Room Air Laboratory Results 24 Hours: Test 04/26/17 14:01 04/27/17 06:38 Hematocrit 30.0 % 29.5 % Hemoglobin 9.4 g/dL 9.3 g/dL Assessment & Plan Assessment: POD# 1 Right I & D poly exchange after Right TKA Plan: DVT - ASA PT/OT Discharge - Home with home health or SNF - will require penitentiary antibiotics medial management Appreciate ID consult Awaiting cultures/sensitives gram stain came back gram (+) cocci Inhouse Planning Pain Management: Celebrex, PO Tylenol, Oxy IR DVT Prophylaxis: TEDs, SCDs, ASA Discharge Planning Discharge Planning: home with home health Pain Management: Oxy IR DVT Prophylaxis: TEDs, ASA
[2017-04-27 07:26] LABS: BUN/CREATININE RATIO 15.1 (10-20); CALCIUM 8.9 mg/dl (8.5-10.1); CREATININE 0.92 mg/dl (0.60-1.20)
[2017-04-27] MEDS: INSULIN ASPART 100 UNITS/ML 3 ML PEN SC SCH ×4 (08:00→21:00)
--- NOTE | 2017-04-27 08:32 | Clinical Documentation Query ---
CLINICAL DOCUMENTATION QUERY Dr. MICHEL, In your clinical opinion is this patient being managed for: ( ) R knee infection following TKA ( ) Not Agree ( x ) Other explanation of clinical findings (Please Explain) Non-healing wound that has become colonized or secondarily infected. Clinically her picture did not appear to be a deep post-operative wound infection. Nor were the findings deep in the knee at time of surgery suggest an active deep infection. The distal aspect of her wound never healed but there was never any purulent drainage from the region. The distal aspect never healed and the joint has been exposed to the environment and required aggressive I&D and 6 weeks of anti-biotics to prevent deep infection from setting in. ( ) Unable to determine (Please Define) ( ) Need to Discuss The medical record reflects the following clinical findings, treatment, and risk factors. Clinical Indicators:67 yo female presenting with a non healing wound following recent TKA. Deep R knee gram stain showed moderate WBC and few gram + cocci. Final culture results are pending. ID consult indicates postoperative prosthetic knee infection. Treatment: R knee I/D and poly exchange, ID consult, IV vancomycin Risk Factors: recent R TKA, DM Please clarify and document your clinical opinion in the progress notes and discharge summary. Terms such as "probable", "suspected", "likely", "questionable", "possible", or "still to be ruled out" are acceptable. IF IN AGREEMENT, YOU MUST DOCUMENT ABOVE DIAGNOSTIC STATEMENT IN DAILY PROGRESS NOTES AND DISCHARGE SUMMARY. This document is not part of the patient's record. Thank You, Marixa Lantigua, RN [phone]
[2017-04-27] MEDS: FERROUS GLUCONATE 324 MG TAB PO SCH ×3 (08:36→19:26)
[2017-04-27] MEDS: MAGNESIUM OXIDE 400 MG TAB PO SCH ×2 (08:37→21:14)
[2017-04-27] MEDS: ASPIRIN 81 MG ECTAB PO SCH ×2 (08:37→21:14)
[2017-04-27] MEDS: CeleBREX 200 MG CAP PO SCH ×2 (08:37→21:14)
[2017-04-27] MEDS: MULTIVITAMIN TAB PO SCH (08:38)
[2017-04-27] MEDS: PANTOprazole SOD 40 MG TAB PO SCH (08:38)
[2017-04-27] MEDS: SERTRALINE HCL 100 MG TAB PO SCH (08:38)
[2017-04-27] MEDS: METOPROLOL TARTRATE 25 MG TAB PO SCH ×2 (08:47→21:16)
[2017-04-27] MEDS ORDERED: MULTIVITAMIN TAB PO SCH (09:00)
[2017-04-27] MEDS ORDERED: PIOGLITAZONE TAB 15 MG TAB PO SCH (09:00)
[2017-04-27] MEDS ORDERED: FLUTICASONE PROPIONATE NA SPR 16 GM BTL NAE PRN (09:00)
[2017-04-27] MEDS ORDERED: LISINOPRIL 10 MG TAB PO SCH (09:00)
[2017-04-27] MEDS ORDERED: NON-FORMULARY MEDICATION (Ferrous Sulfate (Kp Ferrous Sulfate) 1 TAB) PO SCH (09:00)
--- NOTE | 2017-04-27 10:18 | Anesthesiology Progress Note ---
Anesthesia Post Op Note Date & Time Apr 27, 2017 at 10:17 Vital Signs Vital Signs Past 12 Hours Date Time Temp Pulse Resp B/P (MAP) Pulse Ox O2 Delivery O2 Flow Rate FiO2 04/27/17 08:46 84 160/76 (104) 04/27/17 07:15 Room Air 04/27/17 07:09 37.2 68 18 129/74 (92) 96 Room Air 04/27/17 03:47 36.8 65 16 128/72 (90) 97 Room Air 04/26/17 23:31 36.6 72 16 114/69 (84) 96 Room Air 04/26/17 22:25 Room Air Notes Mental Status: alert / awake / arousable, participated in evaluation Pt Amnestic to Procedure: Yes Nausea / Vomiting: adequately controlled Pain: adequately controlled Airway Patency, RR, SpO2: stable & adequate BP & HR: stable & adequate Hydration State: stable & adequate Neuraxial Anesthesia: was administered, sensory block resolved Anesthetic Complications: no major complications apparent
--- NOTE | 2017-04-27 10:53 | Progress Note ---
Subjective Date of Service: Apr 27, 2017. Subjective Pt evaluation today including: conversation w/ patient, physical exam, lab review, review of inpatient medication list Pain: slight burning pain in knee, no severe pain PO Intake: adequate Voiding: no voiding problems patient doing well, the pain that was in her calf is now gone eating well, no CP, no SOB, no N/V labs stable, vitals stable ID following for antibiotic recommendations Review of Systems Musculoskeletal: + joint pain (knee) All Other Systems: Reviewed and Negative Medications Current Inpatient Medications Medications (Trade) Dose Ordered Sig/Keyana Route Start Time Stop Time Status Last Admin Dose Admin Atorvastatin Calcium (Lipitor Tab) 40 mg HS PO 04/26/17 21:00 05/26/17 20:59 04/26/17 21:09 40 MG Docusate Sodium (coLACE CAP) 100 mg BID PRN PO 04/26/17 11:15 05/26/17 11:14 Fluticasone Propionate (Flonase Nasal Crystal) 2 sprays DAILY PRN DMITRIY 04/27/17 09:00 05/27/17 08:59 Levothyroxine Sodium (Synthroid Tab) 100 mcg DAILYBB PO 04/27/17 06:00 05/27/17 05:59 04/27/17 06:01 100 MCG Lisinopril (Zestril Tab) 10 mg QAM PO 04/27/17 09:00 05/27/17 08:59 Future Hold Magnesium Oxide (Mag-Ox Tab) 400 mg BID PO 04/26/17 21:00 05/26/17 20:59 04/27/17 08:37 400 MG Metoprolol Tartrate (Lopressor Tab) 12.5 mg BID PO 04/26/17 21:00 05/26/17 20:59 04/27/17 08:47 12.5 MG Multivitamins (Multivitamin Tab) 1 tab QAM PO 04/27/17 09:00 05/27/17 08:59 04/27/17 08:38 1 TAB Sertraline HCl (Zoloft Tab) 100 mg QAM PO 04/27/17 09:00 05/27/17 08:59 04/27/17 08:38 100 MG Celecoxib (CeleBREX CAP) 200 mg BID PO 04/26/17 21:00 05/26/17 20:59 04/27/17 08:37 200 MG Oxycodone HCl (Roxicodone Immediate Rel Tab) 1 TABLET FOR PAIN RATING... Q4H PRN PO 04/26/17 11:15 05/10/17 11:14 04/27/17 07:23 10 MG Morphine Sulfate (MoRPHine SULFATE INJ) 2 mg Q2H PRN IV 04/26/17 11:15 05/10/17 11:14 Acetaminophen (Tylenol Tab) 1,000 mg Q8H PO 04/26/17 14:00 05/26/17 13:59 04/27/17 06:01 1,000 MG Diphenhydramine HCl (Benadryl Cap) 25 mg Q8H PRN PO 04/26/17 11:15 05/26/17 11:14 Al Hydrox/Mg Hydrox/Simethicone (Maalox Max Susp) 15 ml Q4H PRN PO 04/26/17 11:15 05/26/17 11:14 Zolpidem Tartrate (Ambien Tab) 5 mg HSZ PRN PO 04/26/17 11:15 05/26/17 11:14 Ondansetron HCl (Zofran Inj) 4 mg Q6H PRN IV 04/26/17 11:15 05/26/17 11:14 Metoclopramide HCl (Reglan Inj) 10 mg Q6H PRN IV 04/26/17 11:15 05/26/17 11:14 Ferrous Gluconate (Ferrous Gluconate Tab) 324 mg TIDM PO 04/26/17 12:30 05/26/17 12:29 04/27/17 08:36 324 MG Pantoprazole Sodium (Protonix Tab) 40 mg QAM PO 04/27/17 09:00 05/27/17 08:59 04/27/17 08:38 40 MG Aspirin (Ecotrin Tab) 81 mg BID PO 04/26/17 21:00 05/26/17 20:59 04/27/17 08:37 81 MG Glucose (Glucose 40% Gel) 15-30 GRAMS 15 GRAMS... UD PRN PO 04/26/17 13:45 05/26/17 13:44 Glucose (Glucose Chew Tab) 4-8 Tablets 4 Tabl... UD PRN PO 04/26/17 13:45 11/4/17 13:44 Dextrose (Dextrose 50% 50ML Syringe) 25-50ML OF 50% DW IV FOR... UD PRN IV 04/26/17 13:45 05/26/17 13:44 Glucagon (Glucagon Inj) 1 mg UD PRN SQ 04/26/17 13:45 05/26/17 13:44 Insulin Aspart (novoLOG ASPART) SLIDING SCALE G... ACHS SC 04/26/17 17:15 05/26/17 17:14 04/26/17 21:17 1 UNITS Hydralazine HCl (HydrALAZINE INJ) 10 mg Q6H PRN IV. 04/26/17 13:45 05/26/17 13:44 Objective Vital Signs Date Time Temp Pulse Resp B/P (MAP) Pulse Ox O2 Delivery O2 Flow Rate FiO2 04/27/17 08:46 84 160/76 (104) 04/27/17 07:15 Room Air 04/27/17 07:09 37.2 68 18 129/74 (92) 96 Room Air 04/27/17 03:47 36.8 65 16 128/72 (90) 97 Room Air 04/26/17 23:31 36.6 72 16 114/69 (84) 96 Room Air 04/26/17 22:25 Room Air 04/26/17 21:00 80 129/77 (94) 04/26/17 19:40 36.7 81 16 124/69 (87) 95 Room Air 04/26/17 16:13 Room Air 04/26/17 15:15 36.6 87 18 134/79 (97) 97 Nasal Cannula 2.0 04/26/17 14:22 37.2 90 18 165/88 (113) 97 Nasal Cannula 2.0 04/26/17 13:14 37.1 90 18 124/73 (90) 97 Nasal Cannula 2.0 04/26/17 12:45 37.1 85 18 124/73 (90) 97 Nasal Cannula 2.0 04/26/17 12:15 96 Nasal Cannula 2.0 04/26/17 12:15 37.0 90 16 114/74 (87) 96 Nasal Cannula 2.0 04/26/17 12:15 96 Nasal Cannula 2.0 04/26/17 11:35 86 16 118/63 97 Nasal Cannula 2 04/26/17 11:20 37 86 16 101/61 97 Nasal Cannula 2 04/26/17 11:10 86 16 115/63 97 Nasal Cannula 2 04/26/17 11:00 81 16 110/62 100 Oxymask 10 04/26/17 10:50 36.3 85 16 116/60 100 Oxymask 10 Physical Exam General Appearance: no apparent distress, + obese Eyes: normal inspection, EOMI, sclerae normal ENT: normal ENT inspection, hearing grossly normal, pharynx normal Neck: supple, no adenopathy, no JVD, trachea midline Respiratory/Chest: chest non-tender, lungs clear, normal breath sounds, no respiratory distress, no accessory muscle use Cardiovascular: regular rate, rhythm, no edema, no gallop, no JVD, no murmur Abdomen: normal bowel sounds, non tender, soft, no organomegaly Extremities: no pedal edema, no calf tenderness, normal capillary refill, pelvis stable, + pertinent finding (knee tender, swollen, decreased ROM) Neurologic/Psychiatric: 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, no motor/sensory deficits, alert, normal mood/affect, oriented x 3 Skin: normal color, warm/dry, no rash Laboratory Results Last 24 Hours Test 04/26/17 14:01 04/26/17 17:04 04/26/17 20:48 04/27/17 06:38 White Blood Count 9.91 K/uL 12.11 K/uL Red Blood Count 3.50 M/uL 3.43 M/uL Hemoglobin 9.4 g/dL 9.3 g/dL Hematocrit 30.0 % 29.5 % Mean Corpuscular Volume 85.7 fL 86.0 fL Mean Corpuscular Hemoglobin 26.9 pg 27.1 pg Mean Corpuscular Hemoglobin Concent 31.3 g/dl 31.5 g/dl RDW Standard Deviation 47.5 fL 47.6 fL RDW Coefficient of Variation 15.1 % 15.0 % Platelet Count 460 K/uL 527 K/uL Mean Platelet Volume 8.8 fL 8.6 fL Sodium Level 139 mmol/L 140 mmol/L Potassium Level 5.0 mmol/L 4.0 mmol/L Chloride Level 107 mmol/L 107 mmol/L Carbon Dioxide Level 26 mmol/L 25 mmol/L Anion Gap 6.0 mmol/L 8.0 mmol/L Blood Urea Nitrogen 12 mg/dl 14 mg/dl Creatinine 1.00 mg/dl 0.92 mg/dl Est Creatinine Clear Calc Drug Dose 64.2 ml/min 69.8 ml/min Estimated GFR () 68.0 75.2 Estimated GFR (Non- 58.7 64.9 BUN/Creatinine Ratio 11.8 15.1 Random Glucose 209 mg/dl 117 mg/dl Calcium Level 8.7 mg/dl 8.9 mg/dl Bedside Glucose 179 mg/dl 181 mg/dl Test 04/27/17 08:06 Bedside Glucose 119 mg/dl Assessment and Plan 67 y/o female with a history of HTN, HLD, DM II, hypothyroidism, depression, and GERD who presents s/p right knee I&D and right knee poly exchange with Dr. Garvey on 04/26 for medical management. S/p right knee I&D and poly exchange--POD #1 -Pain management, DVT prophylaxis, and PT/OT as per primary team -AVSS -Infectious disease consulted for Vancomycin orders, will make final recommendations HTN--stable -Continue Lopressor 12.5 mg PO BID HLD -Continue Lipitor 40 mg PO hs DM II--last HgbA1c checked 04/20/17 was 6.0 -Hold metformin, Januvia and Actos while inpatient -sugars stable on Novolog coverage and diabetic diet -should resume all home medications on discharge Hypothyroidism -Continue Synthroid 100 mcg PO qd Depression -Continue Zoloft 100 mg PO qd GERD -Prilosec converted to Protonix 40 mg PO qd Code Status -Level I, FULL RESUSCITATION STATUS will sign off at this time since she is medically stable, labs and vitals normal please page [phone] for any new concerns defer to ID for antibiotic recommendations
[2017-04-27] MEDS ORDERED: VANCOMYCIN CONSULT ACTIVE PRN (11:00)
--- NOTE | 2017-04-27 13:18 | Pharmacy Progress Note ---
Pharmacy Antibiotic Consult Date of Service: Apr 27, 2017. Pharmacy Dosing Scope Pharmacy is consulted to initiate vancomycin IV dosing therapy, order appropriate labs and adjust drug dose/frequency. Subjective The patient is a 67 year old female admitted on Apr 26, 2017 at 07:55. Objective Height (Feet): 5 Height (Inches): 3 Weight (Kilograms): 105.200 Lab Results (24hrs): Test 04/26/17 14:01 04/27/17 06:38 04/27/17 08:06 04/27/17 11:27 White Blood Count 9.91 K/uL (4.8-10.8) 12.11 K/uL (4.8-10.8) Red Blood Count 3.50 M/uL (4.2-5.4) 3.43 M/uL (4.2-5.4) Hemoglobin 9.4 g/dL (12.0-16.0) 9.3 g/dL (12.0-16.0) Hematocrit 30.0 % (37-47) 29.5 % (37-47) Mean Corpuscular Volume 85.7 fL (80-100) 86.0 fL (80-100) Mean Corpuscular Hemoglobin 26.9 pg (25-34) 27.1 pg (25-34) Mean Corpuscular Hemoglobin Concent 31.3 g/dl (32-36) 31.5 g/dl (32-36) RDW Standard Deviation 47.5 fL (36.4-46.3) 47.6 fL (36.4-46.3) RDW Coefficient of Variation 15.1 % (11.5-14.5) 15.0 % (11.5-14.5) Platelet Count 460 K/uL (130-400) 527 K/uL (130-400) Mean Platelet Volume 8.8 fL (7.4-10.4) 8.6 fL (7.4-10.4) Sodium Level 139 mmol/L (136-145) 140 mmol/L (136-145) Potassium Level 5.0 mmol/L (3.5-5.1) 4.0 mmol/L (3.5-5.1) Chloride Level 107 mmol/L (98-107) 107 mmol/L (98-107) Carbon Dioxide Level 26 mmol/L (21-32) 25 mmol/L (21-32) Anion Gap 6.0 mmol/L (3-11) 8.0 mmol/L (3-11) Blood Urea Nitrogen 12 mg/dl (7-18) 14 mg/dl (7-18) Creatinine 1.00 mg/dl (0.60-1.20) 0.92 mg/dl (0.60-1.20) Est Creatinine Clear Calc Drug Dose 64.2 ml/min 69.8 ml/min Estimated GFR () 68.0 75.2 Estimated GFR (Non- 58.7 64.9 BUN/Creatinine Ratio 11.8 (10-20) 15.1 (10-20) Random Glucose 209 mg/dl (70-99) 117 mg/dl (70-99) Calcium Level 8.7 mg/dl (8.5-10.1) 8.9 mg/dl (8.5-10.1) Bedside Glucose 119 mg/dl (70-90) Random Vancomycin Level 11.1 mcg/ml Test 04/27/17 11:51 Bedside Glucose 112 mg/dl (70-90) Micro Results: Date/Time Source Procedure Growth Status 04/26/17 08:55 Drainage-Deep Knee Right Gram Stain - Final Resulted 04/26/17 08:55 Bacterial Culture - Preliminary Staph Species Resulted Assessment & Plan Assessment: * 67 yo female who underwent right knee replacement on March 02 * 7 days of amoxicillin postoperatively then 12 days of bactrim * OR on 04/26 for a polyexchange * Consult to continue vancomycin until cultures result- current showing staph species Plan: Patient received 1500 mg preoperatively and one dose postoperatively on 04/26 Random level this AM 11.1 Starting maintenance dose of 1250 mg q14H PK: SCr 0.92, CrCl 69, ke 0.06, T1/2 ~11 hrs Patient at risk for accumulation with BMI > 35 Goal trough between 15-20 mcg/mL Trough has been ordered for 04/29 @ 0730 Pharmacy will continue to follow and will adjust dose/frequency as necessary. Thank you
[2017-04-27] MEDS: VANCOMYCIN INJ 1,250 MG in SODIUM CHLORIDE 0.9% 250ML 250 ML IV SCH (13:34)
--- NOTE | 2017-04-27 15:04 | Progress Note ---
Subjective Date of Service: Apr 27, 2017. Subjective Pt evaluation today including: conversation w/ patient, physical exam, chart review, lab review feeling well. no complaints, pain controlled. no f/c. vac remains in place. dressing intact. Had pt today. tolerating vanco. OR culture with staph species, final pending. No n/v/d eating well. all remaining ros reviewed and are negative. Objective Vital Signs Date Time Temp Pulse Resp B/P (MAP) Pulse Ox O2 Delivery O2 Flow Rate FiO2 04/27/17 08:46 84 160/76 (104) 04/27/17 07:15 Room Air 04/27/17 07:09 37.2 68 18 129/74 (92) 96 Room Air 04/27/17 03:47 36.8 65 16 128/72 (90) 97 Room Air 04/26/17 23:31 36.6 72 16 114/69 (84) 96 Room Air 04/26/17 22:25 Room Air 04/26/17 21:00 80 129/77 (94) 04/26/17 19:40 36.7 81 16 124/69 (87) 95 Room Air 04/26/17 16:13 Room Air 04/26/17 15:15 36.6 87 18 134/79 (97) 97 Nasal Cannula 2.0 Physical Exam General Appearance: WD/WN, no apparent distress Eyes: normal inspection, EOMI Neck: supple Respiratory/Chest: lungs clear, normal breath sounds, no respiratory distress Cardiovascular: regular rate, rhythm, no edema Abdomen: non tender, soft Extremities: non-tender, no pedal edema Neurologic/Psychiatric: alert, normal mood/affect Skin: normal color Comments: dressing c/d/i Laboratory Results Item Value Date Time Gram Stain - Final Resulted 04/26/17 0855 Drainage-Deep Knee Right Last 24 Hours Test 04/26/17 17:04 04/26/17 20:48 04/27/17 06:38 04/27/17 08:06 Bedside Glucose 179 mg/dl 181 mg/dl 119 mg/dl White Blood Count 12.11 K/uL Red Blood Count 3.43 M/uL Hemoglobin 9.3 g/dL Hematocrit 29.5 % Mean Corpuscular Volume 86.0 fL Mean Corpuscular Hemoglobin 27.1 pg Mean Corpuscular Hemoglobin Concent 31.5 g/dl RDW Standard Deviation 47.6 fL RDW Coefficient of Variation 15.0 % Platelet Count 527 K/uL Mean Platelet Volume 8.6 fL Sodium Level 140 mmol/L Potassium Level 4.0 mmol/L Chloride Level 107 mmol/L Carbon Dioxide Level 25 mmol/L Anion Gap 8.0 mmol/L Blood Urea Nitrogen 14 mg/dl Creatinine 0.92 mg/dl Est Creatinine Clear Calc Drug Dose 69.8 ml/min Estimated GFR () 75.2 Estimated GFR (Non- 64.9 BUN/Creatinine Ratio 15.1 Random Glucose 117 mg/dl Calcium Level 8.9 mg/dl Test 04/27/17 11:27 04/27/17 11:51 Random Vancomycin Level 11.1 mcg/ml Bedside Glucose 112 mg/dl Assessment and Plan (1) Infection of prosthetic right knee joint Assessment & Plan: will remain on vanco pending additional micro data, maintain trough 15-20. Awaiting insurance coverage for placement at rehab vs home IV abx. will need picc. will need weekly cbc,cmp, esr and vanco trough if she remains on vanco. final culture pending.
[2017-04-27] MEDS: ATORVASTATIN 40 MG TAB PO SCH (21:14)
[2017-04-28] MEDS: VANCOMYCIN INJ 1,250 MG in SODIUM CHLORIDE 0.9% 250ML 250 ML IV SCH ×2 (03:22→19:29)
[2017-04-28] MEDS: LEVOTHYROXINE 100 MCG TAB PO SCH (05:53)
[2017-04-28] MEDS: ACETAMINOPHEN 500 MG TAB PO SCH ×3 (05:54→21:57)
[2017-04-28 06:05] VITALS: BP 132/82; PULSE 76; O2SAT 96
[2017-04-28] MEDS: INSULIN ASPART 100 UNITS/ML 3 ML PEN SC SCH ×4 (08:00→21:00)
[2017-04-28] MEDS: MAGNESIUM OXIDE 400 MG TAB PO SCH ×2 (08:01→21:56)
[2017-04-28] MEDS: PANTOprazole SOD 40 MG TAB PO SCH (08:01)
[2017-04-28] MEDS: SERTRALINE HCL 100 MG TAB PO SCH (08:02)
[2017-04-28] MEDS: CeleBREX 200 MG CAP PO SCH ×2 (08:02→21:56)
[2017-04-28] MEDS: MULTIVITAMIN TAB PO SCH (08:02)
[2017-04-28] MEDS: METOPROLOL TARTRATE 25 MG TAB PO SCH ×2 (08:03→21:56)
[2017-04-28] MEDS: FERROUS GLUCONATE 324 MG TAB PO SCH ×3 (08:03→19:28)
[2017-04-28] MEDS: ASPIRIN 81 MG ECTAB PO SCH ×2 (08:03→21:56)
[2017-04-28] MEDS: DOCUSATE SODIUM 100 MG CAP PO PRN (08:12)
[2017-04-28] MEDS: OXYCODONE HCL IR 5 MG TAB (IMMEDIATE RELEASE) PO PRN (08:13)
[2017-04-28 08:59] VITALS: BP 153/78; PULSE 87; O2SAT 98
--- NOTE | 2017-04-28 09:05 | Orthopedic Progress Note ---
Orthopedic Progress Note Date of Service Apr 28, 2017. Subjective Post OP Day: 2 Reports: feeling well Objective N/V intact, dressing C/D/I (prevena in place), toes mobile Date Time Temp Pulse Resp B/P (MAP) Pulse Ox O2 Delivery O2 Flow Rate FiO2 04/28/17 06:05 76 16 132/82 (99) 96 Room Air 04/27/17 22:45 36.5 79 18 145/79 (101) 94 Room Air 04/27/17 21:17 88 141/79 (99) 04/27/17 19:30 Room Air 04/27/17 18:13 Room Air 04/27/17 15:13 36.5 68 18 138/81 (100) 97 Room Air 04/27/17 15:00 36.6 69 18 108/68 (81) 95 Humidified Oxygen 4.0 Assessment & Plan Assessment: POD# 2 Right I & D poly exchange after Right TKA, MSSA on culture Plan: DVT - ASA PT/OT Discharge - Home with home health - will require middle or intermediate school principal antibiotics, PICC line in place medial management Appreciate ID consult- await final abx recommendation Inhouse Planning Pain Management: Celebrex, PO Tylenol, Oxy IR DVT Prophylaxis: TEDs, SCDs, ASA Discharge Planning Discharge Planning: home with home health Pain Management: Oxy IR DVT Prophylaxis: TEDs, ASA
[2017-04-28 15:50] VITALS: BP 139/76; PULSE 75; TEMP 37.1; O2SAT 96
[2017-04-28] MEDS: ATORVASTATIN 40 MG TAB PO SCH (21:56)
[2017-04-28 23:14] VITALS: BP 146/78; PULSE 80; O2SAT 96
[2017-04-29] MEDS: OXYCODONE HCL IR 5 MG TAB (IMMEDIATE RELEASE) PO PRN ×3 (02:15→12:06)
[2017-04-29] MEDS: LEVOTHYROXINE 100 MCG TAB PO SCH (05:37)
[2017-04-29] MEDS: ACETAMINOPHEN 500 MG TAB PO SCH ×3 (05:38→21:32)
[2017-04-29 06:08] VITALS: BP 127/79; PULSE 70; TEMP 37.1; O2SAT 96
[2017-04-29] MEDS ORDERED: VANCOMYCIN TROUGH ONE (07:30)
[2017-04-29] MEDS: DOCUSATE SODIUM 100 MG CAP PO PRN (07:34)
[2017-04-29] MEDS: VANCOMYCIN INJ 1,250 MG in SODIUM CHLORIDE 0.9% 250ML 250 ML IV SCH ×2 (07:35→21:32)
[2017-04-29] MEDS: ASPIRIN 81 MG ECTAB PO SCH ×2 (07:36→21:32)
[2017-04-29] MEDS: MAGNESIUM OXIDE 400 MG TAB PO SCH ×2 (07:36→21:32)
[2017-04-29] MEDS: METOPROLOL TARTRATE 25 MG TAB PO SCH ×2 (07:36→21:32)
[2017-04-29] MEDS: MULTIVITAMIN TAB PO SCH (07:37)
[2017-04-29] MEDS: PANTOprazole SOD 40 MG TAB PO SCH (07:37)
[2017-04-29] MEDS: SERTRALINE HCL 100 MG TAB PO SCH (07:37)
[2017-04-29] MEDS: FERROUS GLUCONATE 324 MG TAB PO SCH ×3 (07:37→19:46)
[2017-04-29] MEDS: CeleBREX 200 MG CAP PO SCH ×2 (07:37→21:31)
[2017-04-29] MEDS: INSULIN ASPART 100 UNITS/ML 3 ML PEN SC SCH ×4 (07:38→21:00)
--- NOTE | 2017-04-29 08:25 | Orthopedic Progress Note ---
Orthopedic Progress Note Date of Service Apr 29, 2017. Subjective Post OP Day: 3 Reports: feeling well Objective N/V intact, dressing C/D/I (Prevena in place), toes mobile Date Time Temp Pulse Resp B/P (MAP) Pulse Ox O2 Delivery O2 Flow Rate FiO2 04/29/17 06:08 37.1 70 16 127/79 (95) 96 Room Air 04/28/17 23:50 Room Air 04/28/17 23:14 80 18 146/78 (100) 96 Room Air 04/28/17 16:00 Room Air 04/28/17 15:50 37.1 75 18 139/76 (97) 96 Room Air 04/28/17 08:59 87 98 Assessment & Plan Assessment: POD# 3 Right I & D poly exchange after Right TKA, MSSA on culture Plan: DVT - ASA PT/OT Discharge - Home with home health - will require intermediate accountant antibiotics, PICC line in place medial management Appreciate ID consult- await final abx recommendation Inhouse Planning Pain Management: Celebrex, PO Tylenol, Oxy IR DVT Prophylaxis: TEDs, SCDs, ASA Discharge Planning Discharge Planning: home with home health Pain Management: Oxy IR DVT Prophylaxis: TEDs, ASA
[2017-04-29 08:55] VITALS: BP 141/78; PULSE 76; O2SAT 98
--- NOTE | 2017-04-29 14:03 | Pharmacy Progress Note ---
Pharmacy Antibiotic Prog Note Date of Service Apr 29, 2017. Objective Height (Feet): 5 Height (Inches): 3.00 Weight (Kilograms): 105.200 Lab Results (24hrs): Test 04/29/17 06:06 04/29/17 07:26 04/29/17 12:12 Bedside Glucose 121 mg/dl (70-90) 84 mg/dl (70-90) Vancomycin Level Trough 14.8 mcg/ml (SEE COMMENT) Assessment & Plan Assessment * 67 yo F admitted w infected TKA s/p I&D with MSSA growing from operative cultures 04/26 * Surgery aware of MSSA result - awaiting recs by ID. Can likely de-escalate vancomycin. * Goal vancomycin trough 15-20 mcg/mL * Trough of 14.8 mcg/mL is just slightly subtherapeutic, but patient is anticipated to accumulate 2nd BMI. No change for now. * Will not order repeat trough at this time in anticipation of de-escalation of vancomycin Plan * Continue vancomycin 1250 mg IV q14h Pharmacy will continue to follow and will adjust dose/frequency as necessary. Thank you
[2017-04-29 15:15] VITALS: BP 125/74; PULSE 94; TEMP 36.3; O2SAT 95
[2017-04-29 21:30] VITALS: BP 109/68; PULSE 81
[2017-04-29] MEDS: ATORVASTATIN 40 MG TAB PO SCH (21:32)
[2017-04-29 23:05] VITALS: BP 130/82; PULSE 87; TEMP 36.8; O2SAT 94
[2017-04-30] MEDS: ACETAMINOPHEN 500 MG TAB PO SCH ×2 (05:55→13:54)
[2017-04-30] MEDS: LEVOTHYROXINE 100 MCG TAB PO SCH (05:55)
[2017-04-30 06:28] VITALS: BP 137/80; PULSE 87; TEMP 37.1; O2SAT 95
[2017-04-30] MEDS ORDERED: ASPEC81 PO (07:09)
[2017-04-30] MEDS ORDERED: VANC1INJ94 IV (07:09)
[2017-04-30] MEDS ORDERED: RXC5 PO (07:09)
--- NOTE | 2017-04-30 07:13 | Discharge Instructions ---
Discharge Instructions Date of Service Apr 30, 2017. Admission Reason for Admission: Non-Healing Wound S/P Tka (Z47.1 Pre Op Labs) Discharge Discharge Diagnosis / Problem: S/P I & D after Right TKA Discharge Goals Goal(s): Decrease discomfort, Improve function Activity Recommendations Activity Limitations: per Instructions/Follow-up section . Instructions / Follow-Up Instructions / Follow-Up ACTIVITY RECOMMENDATIONS: SELF CARE INSTRUCTIONS AFTER TOTAL KNEE REPLACEMENT A. You may need to continue a physical therapy program after discharge from the hospital. There are several options available to you. Your doctor will assist you in selecting the best one for you. 1. An out-patient facility 2 to 3 times a week for therapy or home therapy. 2. Continue working on all exercises taught to you in the hospital. Your goals should be to increase bending of your knee to 90 degrees and beyond and to fully straighten your knee. B. You may progress at your own pace from walking with a walker or crutches to a cane; then to no assistive devices. C. Make walking a part of your daily routine. Be up as much as comfortable with rest periods throughout the day. Rest with leg elevation is very important. Use the ice wrap frequently for the first 3-4 weeks. D. There are no restrictions on activities. You may ride in a car, shop, participate in ship's carpenter and all social activities. E. Wear the long elastic stockings (SITA hose) 20 hours a day for 2 weeks after surgery. They can be removed several times a day for laundering and for a bath. F. You may shower, no tub baths until cleared by your doctor. SPECIAL CARE INSTRUCTIONS: VERY IMPORTANT TO READ AND REVIEW A. There are a few signs you need to watch for after you are home. Call [facility] [place] if you notice any of the followin. Increased severe knee pain. Some pain is expected especially when you exercise. 2. Increased swelling in your leg or knee; pain or swelling of the calf muscle in either lower leg. 3. Any fluid drainage from the incision. 4. Shortness of breath or chest pain. B. Please call [facility] [place] at if you have any concerns or questions about your operation or recovery. The doctor or his nurse will return your call promptly. C. You must take antibiotics before dental work, bladder, bowel or other surgery. Your doctor will provide you with a permanent care to carry describing this precaution. IMPORTANT: * REMEMBER TO TAKE ASPIRIN, 81 MG, TWICE DAILY FOR 4 WEEKS UNLESS OTHERWISE DIRECTED. THIS IS YOUR BLOOD THINNER. * CALL IF INCREASED PAIN, REDNESS, DRAINAGE OR FEVER GREATER THAT 101. * WEAR SITA HOSE 20 HOURS PER DAY FOR 2 WEEKS. * YOU MAY HAVE A LARGE BAND-AID LIKE DRESSING (PREVENA). THIS WILL REMAIN ON YOUR INCISION FOR 7 DAYS, THEN CAN BE REMOVED. IF INCISION IS LEAKING THROUGH DRESSING, CALL THE OFFICE . FOLLOW UP VISIT: If appointment is not already scheduled: Please call [facility] [place] to make a follow-up appointment for 2 weeks after your surgery at . FOLLOW UP WITH INFECTIOUS DISEASE WITH WEEKLY LABS AND REGULAR FOLLOW UP TO ENSURE MEDICATION IS WORKING APPROPRIATELY. Current Hospital Diet Patient's current hospital diet: Diabetes Type 2 Diet Discharge Diet Recommended Diet: Diabetes Type 2 Diet Procedures Procedures Performed: Right Knee Incision and Drainage, Right Knee Poly Exchange Status Post Right Total Knee Arthroplasty Pending Studies Studies pending at discharge: no Laboratory Results Hemoglobin A1c Test 04/20/17 10:06 Range/Units Estimated Average Glucose 126 mg/dl Hemoglobin A1c 6.0 H 4.5-5.6 % Medical Emergencies . Who to Call and When: Medical Emergencies: If at any time you feel your situation is an emergency, please call 911 immediately. . Non-Emergent Contact Non-Emergency issues call your: Surgeon Call Non-Emergent contact if: temperature is above 101.5, your pain is worsening, wound has increased drainage, wound has increased redness . "Provider Documentation" section prepared by Joshua Braswell. . VTE Core Measure Inpt VTE Proph given/why not?: Other Anticoagulation (ASA), [place] Drug Monitoring Program Search Results: patient reviewed within database, no issues identified
--- NOTE | 2017-04-30 07:20 | Orthopedic Progress Note ---
Orthopedic Progress Note Date of Service Apr 30, 2017. Subjective Post OP Day: 4 Reports: feeling well, pain controlled w PO medications, Denies: complaints, chest pain, SOB, nausea / vomiting, light headedness, calf pain Objective calves soft nontender, N/V intact, capillary refill less than 2 sec., dressing C /D/I, A&O x3, toes mobile Date Time Temp Pulse Resp B/P (MAP) Pulse Ox O2 Delivery O2 Flow Rate FiO2 04/30/17 06:28 37.1 87 16 137/80 (99) 95 Room Air 04/29/17 23:15 Room Air 04/29/17 23:05 36.8 87 16 130/82 (98) 94 Room Air 04/29/17 21:30 81 109/68 (82) 04/29/17 15:45 Room Air 04/29/17 15:15 36.3 94 18 125/74 (91) 95 Room Air 04/29/17 08:55 76 98 04/29/17 07:25 Room Air Assessment & Plan Assessment: POD# 4 Right I & D poly exchange after Right TKA, MSSA on culture Plan: DVT - ASA PT/OT Discharge - Home with home health - will require jail antibiotics, PICC line in place medial management Appreciate ID consult Inhouse Planning Pain Management: Celebrex, PO Tylenol, Oxy IR DVT Prophylaxis: TEDs, SCDs, ASA Discharge Planning Discharge Planning: home with home health Pain Management: Oxy IR DVT Prophylaxis: TEDs, ASA
[2017-04-30] MEDS: INSULIN ASPART 100 UNITS/ML 3 ML PEN SC SCH ×2 (07:40→11:55)
[2017-04-30] MEDS: MAGNESIUM OXIDE 400 MG TAB PO SCH (07:42)
[2017-04-30] MEDS: METOPROLOL TARTRATE 25 MG TAB PO SCH (07:42)
[2017-04-30] MEDS: CeleBREX 200 MG CAP PO SCH (07:42)
[2017-04-30] MEDS: SERTRALINE HCL 100 MG TAB PO SCH (07:43)
[2017-04-30] MEDS: PANTOprazole SOD 40 MG TAB PO SCH (07:43)
[2017-04-30] MEDS: ASPIRIN 81 MG ECTAB PO SCH (07:43)
[2017-04-30] MEDS: FERROUS GLUCONATE 324 MG TAB PO SCH ×2 (07:43→13:53)
[2017-04-30] MEDS: MULTIVITAMIN TAB PO SCH (07:43)
[2017-04-30] MEDS: DOCUSATE SODIUM 100 MG CAP PO PRN (07:48)
[2017-04-30] MEDS: OXYCODONE HCL IR 5 MG TAB (IMMEDIATE RELEASE) PO PRN ×2 (07:48→16:10)
--- NOTE | 2017-04-30 09:57 | Progress Note ---
Subjective Date of Service: Apr 30, 2017. Subjective pt oob to chair, pain controlled. tolerating abx afebrile. culture with MSSA remains on vanco. plans for d/c home with IV abx. Objective Vital Signs Date Time Temp Pulse Resp B/P (MAP) Pulse Ox O2 Delivery O2 Flow Rate FiO2 04/30/17 07:40 Room Air 04/30/17 06:28 37.1 87 16 137/80 (99) 95 Room Air 04/29/17 23:15 Room Air 04/29/17 23:05 36.8 87 16 130/82 (98) 94 Room Air 04/29/17 21:30 81 109/68 (82) 04/29/17 15:45 Room Air 04/29/17 15:15 36.3 94 18 125/74 (91) 95 Room Air Physical Exam General Appearance: no apparent distress Neck: supple Respiratory/Chest: normal breath sounds, no respiratory distress Neurologic/Psychiatric: alert, oriented x 3 Skin: normal color Laboratory Results Item Value Date Time Gram Stain - Final Resulted 04/26/17 0855 Drainage-Deep Knee Right Last 24 Hours Test 04/29/17 12:12 04/29/17 17:11 04/29/17 20:35 04/30/17 06:24 Bedside Glucose 84 mg/dl 112 mg/dl 144 mg/dl 139 mg/dl Assessment and Plan (1) Infection of prosthetic right knee joint Assessment & Plan: will change to rocephin 2 g IV daily, will need 6 weeks. tentative stop date 06/07, will need weekly cbc cmp esr while on abx. can follow with ID post d/c.
[2017-04-30] MEDS ORDERED: CEFTRIAXONE SOD INJ 2,000 MG in DEXTROSE 5% 50ML 50 ML IV SCH (10:00)
[2017-04-30 15:33] VITALS: BP 137/80; PULSE 78; TEMP 37.1; O2SAT 98
--- NOTE | 2017-05-07 09:42 | Discharge Summary ---
Orthopedic Discharge Summary Admission Date/Reason Apr 26, 2017 at 07:55 Non-Healing Wound S/P Tka (Z47.1 Pre Op Labs). Discharge Date/Disposition Apr 30, 2017 Home with services Diagnosis Principal Diagnosis: S/P I & D right knee after Right TKA Medication Reconciliation as per discharge instructions Admission Physical Exam As per Admitting History & Physical. Hospital Course POD #1 patient was feeling well. Dressing was clean, dry and intact. She was neurovascularly intact. We were awaiting cultures to determine her IV antibiotic treatment. POD #2 patient was feeling well. Dressing was clean, dry and intact. She was neurovascularly intact. Cultures were still pending at this time. POD #3 patient was feeling well. Dressing was clean, dry and intact. She was neurovascularly intact. Cultures were coming back MSSA. She is scheduled for 6 weeks of IV antibiotics. We were awaiting recommendations from infectious disease. POD #4 patient was feeling well. Dressing was clean, dry and intact. She was neurovascularly intact. Infectious disease placed her on ceftriaxone 2 grams daily IV for 6 weeks. She would be transferred home with home health services. Discharge Instructions Please refer to the electronic Patient Visit Report (Discharge Instructions) for additional information.
== END 2017-04-30 16:50 | disposition home health service (06) | DRG 488 ==
LOC: C.ACU 06:32 → C.3E 07:55 → ENRESERV 11:45
PROVIDERS: ADMIT Orthopaedic Surgery; ATTEND Orthopaedic Surgery
PROC: 0SUV09Z Supplement Right Knee Joint, Tibial Surface with Liner, Open Approach (ICD-10-PCS; principal; 2017-04-26 08:15)
PROC: 0SPC09Z Removal of Liner from Right Knee Joint, Open Approach (ICD-10-PCS; principal; 2017-04-26 08:15)
DX: T84.89XA Other specified complication of internal orthopedic prosthetic devices, implants and grafts, initial encounter (principal); Z68.41 Body mass index [BMI] 40.0-44.9, adult; E66.01 Morbid (severe) obesity due to excess calories; I10 Essential (primary) hypertension; E78.00 Pure hypercholesterolemia, unspecified; F41.9 Anxiety disorder, unspecified; E11.9 Type 2 diabetes mellitus without complications; E03.9 Hypothyroidism, unspecified; K21.9 Gastro-esophageal reflux disease without esophagitis; Z79.82 Long term (current) use of aspirin

== ENCOUNTER → 2017-07-19 | Outpatient (CLI) | payer OTHER ==
[~2017-07-19] MED LIST changes: -ACETAMINOPHEN 500 MG TAB PO SCH; -AMOX500C3 PO; -CEFAZOLIN 2000 MG/60 ML D5W 60 ML IV SCH; -CeleBREX 200 MG CAP PO SCH; -DEXAMETHASONE 4 MG TAB PO SCH; -FAMOTIDINE 20 MG TAB PO SCH; -GABAPENTIN 300 MG CAP PO SCH; -LACTATED RINGER'S 1000ML 1,000 ML IV SCH; -LACTATED RINGER'S 1000ML IV SCH; -METOCLOPRAMIDE HCL 10 MG TAB PO SCH; -PATIENT'S HEIGHT AND/OR WEIGHT NEEDED SCH; +RXC5 PO; -SULF800T23 PO; +VANC1INJ94 IV; -VANCOMYCIN INJ 1,500 MG in SODIUM CHLORIDE 0.9% 500ML 500 ML IV SCH
[2017-07-19 12:04] LABS: BASO % 0.3 %; BASO ABS # 0.03 K/uL (0-0.2); COMPLETE YES; EOS % 3.6 %; HEMATOCRIT 35.4 % (37-47); IG% 0.2 %; LYMPH % 19.5 %; LYMPH ABS # 1.69 K/uL (1.2-3.4); MEAN CELL VOLUME 84.9 fL (80-100); MEAN CORPUSCULAR HEMOGLOBIN 27.1 pg (25-34); MEAN CORPUSCULAR HGB CONC 31.9 g/dl (32-36); MONO % 5.9 %; NEUT % 70.5 %; PLATELET COUNT 341 K/uL (130-400); RED BLOOD COUNT 4.17 M/uL (4.2-5.4); WHITE BLOOD COUNT 8.67 K/uL (4.8-10.8)
[2017-07-19 12:21] LABS: TOTAL IRON BINDING CAPACITY 351 mcg/dl (250-450)
== END | disposition home or self-care (01) ==
LOC: C.LAB1850 10:22
PROVIDERS: ATTEND Internal Medicine
DX: D64.9 Anemia, unspecified (principal)